=== PATIENT | female | born 1980 | race Caucasian/White ===

== ENCOUNTER 2016-11-22 13:23 | Emergency (ER) | payer OTHER ==
[~2016-11-22] VITALS: Ht 157.5 cm; Wt 108.9 kg
[~2016-11-22 13:23] MED LIST: PHEDM120 PO
[2016-11-22 13:25] VITALS: BP 122/74; PULSE 92; RESP 18; TEMP 97.9; O2SAT 97
[2016-11-22] MEDS ORDERED: DIPHENHYDRAMINE INJ 50 MG/ML VIAL IVP ONE (15:00)
[2016-11-22] MEDS ORDERED: METOCLOPRAMIDE HCL 10 MG/2 ML VIAL IVP ONE (15:00)
[2016-11-22 15:06] LABS: BASOPHILS % (AUTO) 0.4 % (0.0-2.0); EOSINOPHILS # (AUTO) 0.1 K/uL (0.0-0.4); EOSINOPHILS % (AUTO) 1.4 % (0.0-4.0); HEMATOCRIT 40.1 % (36-48); HEMOGLOBIN 13.9 g/dL (12.0-16.0); LYMPHOCYTES # (AUTO) 1.8 K/uL (1.0-5.5); LYMPHOCYTES % (AUTO) 25.7 % (20.5-51.5); MEAN CORPUSCULAR HEMOGLOBIN 27 pg (27-31); MEAN CORPUSCULAR HGB CONC 35 % (32-36); MEAN CORPUSCULAR VOLUME 77 fL (79.0-98.0); MONOCYTES # (AUTO) 0.4 K/uL (0.0-1.0); MONOCYTES % (AUTO) 6.4 % (1.7-9.3); NEUTROPHILS # (AUTO) 4.5 K/uL (1.8-7.7); NEUTROPHILS % (AUTO) 66.1 % (40.0-70.0); PLATELET COUNT (AUTO) 216 K/uL (130-430); RED BLOOD CELL COUNT(AUTO) 5.23 MIL/uL (4.2-6.2); RED CELL DISTRIBUTION WIDTH 14.4 % (9.0-15.0); WHITE BLOOD COUNT (AUTO) 6.8 K/uL (4.8-10.8)
[2016-11-22 15:18] LABS: CALCIUM 8.9 mg/dL (8.4-11.0); CREATININE 0.94 mg/dL (0.55-1.30); POTASSIUM 3.9 mmol/L (3.5-5.1)
[2016-11-22 15:24] LABS: ALBUMIN 3.5 g/dL (3.4-4.8); TOTAL BILIRUBIN 0.4 mg/dL (0.0-1.0); TOTAL PROTEIN, SERUM 7.9 g/dL (6.4-8.3)
[2016-11-22] MEDS ORDERED: MORPHINE 4 MG/ML INJ. SYRINGE IVP ONE (17:15)
[2016-11-22 18:25] VITALS: BP 117/76; PULSE 85; RESP 18; TEMP 97.2; O2SAT 99
== END 2016-11-22 18:25 | disposition home or self-care (01) ==
LOC: SED 13:23
DX: R51 Headache (principal); J45.909 Unspecified asthma, uncomplicated; Z88.5 Allergy status to narcotic agent
CPT/HCPCS: 36415; 80053; 81025; 85025; 96374; 96375; 99284; J1200; J2270; J2765

== ENCOUNTER 2016-11-27 04:43 | Emergency (ER) | payer OTHER ==
[~2016-11-27] VITALS: Ht 157.5 cm; Wt 104.3 kg
[2016-11-27 04:50] VITALS: BP 127/73; PULSE 67; RESP 16; TEMP 98.3; O2SAT 94
--- NOTE | 2016-11-27 05:00 | NUR ---
Patient to ER bed 7 to gown for evaluation. Side rails up.
--- NOTE | 2016-11-27 05:01 | NUR ---
Pt in bed 7 with c/o migrane H/A. Dr Dietz aware.
[2016-11-27] MEDS ORDERED: KETOROLAC TROMETHAMINE 30 MG VIAL IVP ONE (05:15)
[2016-11-27] MEDS ORDERED: NACL 0.9% 1,000 ML IV ONE (05:15)
[2016-11-27] MEDS ORDERED: PROCHLORPERAZINE EDISYLATE 10 MG/2 ML VIAL IVP ONE (05:15)
[2016-11-27] MEDS ORDERED: DEXAMETHASONE SOD PHOSPHATE 10 MG/ML VIAL IVP ONE (05:15)
--- NOTE | 2016-11-27 05:20 | NUR ---
ER at bedside examining patient.
--- NOTE | 2016-11-27 05:25 | NUR ---
# 22 gauge angiocath placed to left forearm. Use of asceptic technique. Opsite placed over site. Blood return noted. Blood for lab drawn from site. Flushed with 10 cc of normal saline. No evidence of infiltration noted. Patient tolerated well.
--- NOTE | 2016-11-27 05:40 | NUR ---
Medicated as per orders tolerated well.
[2016-11-27] MEDS ORDERED: HYDROmorphone 1 MG INJ. 1 MG/ML AMPUL IVP ONE (06:15)
[2016-11-27] MEDS ORDERED: ONDANSETRON HCL 4 MG/2 ML VIAL IVP ONE (06:15)
--- NOTE | 2016-11-27 07:25 | NUR ---
Patient sleeping in bed, stable condition. No distress noted.
[2016-11-27 08:00] VITALS: BP 112/76; PULSE 76; RESP 16; TEMP 98.3; O2SAT 98
--- NOTE | 2016-11-27 08:00 | NUR ---
Patient given written and verbal discharge instructions and verbalizes understanding. ER MD discussed with patient the results and treatment provided.Patient in stable condition. ID arm band removed. IV catheter removed intact and dressing applied, no active bleeding. nO Rx given. Patient educated on pain management and to follow up with PMD. Pain Scale 0/10. Opportunity for questions provided and answered.
== END 2016-11-27 08:00 | disposition home or self-care (01) ==
LOC: SED 04:43
DX: G43.819 Other migraine, intractable, without status migrainosus (principal); H53.149 Visual discomfort, unspecified; J45.909 Unspecified asthma, uncomplicated; Z88.5 Allergy status to narcotic agent
CPT/HCPCS: 81025; 96361; 96374; 96375; 99284; J0780; J1100; J1885; J2405; J7030; J1170

== ENCOUNTER 2016-11-28 12:05 | Outpatient (CLI) | payer OTHER | END 2016-11-28 18:13 | disposition home or self-care (01) | LOC: SMI 12:05 | PROVIDERS: ATTEND Internal Medicine | DX: J34.89 Other specified disorders of nose and nasal sinuses (principal); R51 Headache | CPT/HCPCS: 70551 ==

== ENCOUNTER 2017-02-26 15:04 | Outpatient (CLI) | payer OTHER ==
[2017-02-27 08:08] LABS: FOLLICLE STIMULATION HORMONE 4.9 mIU/mL (.); HEMOGLOBIN A1C 5.5 % (4.8-5.6); LUETENIZING HORMONE 2.1 mIU/mL (.); PROLACTIN 12.1 ng/mL (4.8-23.3)
== END 2017-02-26 18:54 | disposition home or self-care (01) ==
LOC: SLB 15:04
PROVIDERS: ATTEND Specialist
DX: N92.6 Irregular menstruation, unspecified (principal)
CPT/HCPCS: 36415; 82670; 83001; 83002; 83036; 83525; 84146; 84443-TC

== ENCOUNTER 2017-03-13 14:23 | Emergency (ER) | payer OTHER ==
[~2017-03-13] VITALS: Ht 157.5 cm; Wt 113.4 kg
[2017-03-13 14:25] VITALS: BP_SYST 133
[2017-03-13] MEDS ORDERED: ONDANSETRON HCL 4 MG/2 ML VIAL IVP ONE (14:45)
[2017-03-13] MEDS ORDERED: MORPHINE 2 MG/ML INJ. SYRINGE IVP ONE (14:45)
[2017-03-13 14:59] LABS: BILIRUBIN,URINE NEGATIVE (NEGATIVE); BLOOD, URINE NEGATIVE (NEGATIVE); CLARITY/URINE SL HAZY (CLEAR); COLOR,URINE YELLOW (YELLOW); GLUCOSE,URINE NEGATIVE (NEGATIVE); KETONES,URINE TRACE (NEGATIVE); LEUKOCYTE ESTERASE ,URINE NEGATIVE (NEGATIVE); NITRITE, URINE NEGATIVE (NEGATIVE); PROTEIN URINE NEGATIVE (NEGATIVE); UROBILINOGEN,URINE 0.2 (0.2-1.0)
[2017-03-13 15:03] LABS: BASOPHILS # (AUTO) 0.1 K/uL (0.0-0.2); BASOPHILS % (AUTO) 0.8 % (0.0-2.0); EOSINOPHILS % (AUTO) 0.3 % (0.0-4.0); HEMATOCRIT 46.6 % (36-48); LYMPHOCYTES # (AUTO) 0.7 K/uL (1.0-5.5); MEAN CORPUSCULAR HEMOGLOBIN 26 pg (27-31); MEAN CORPUSCULAR HGB CONC 32 % (32-36); MEAN CORPUSCULAR VOLUME 81 fL (79.0-98.0); MONOCYTES # (AUTO) 0.3 K/uL (0.0-1.0); MONOCYTES % (AUTO) 2.1 % (1.7-9.3); NEUTROPHILS # (AUTO) 13.8 K/uL (1.8-7.7); NEUTROPHILS % (AUTO) 91.8 % (40.0-70.0); PLATELET COUNT (AUTO) 248 K/uL (130-430); RED BLOOD CELL COUNT(AUTO) 5.77 MIL/uL (4.2-6.2); RED CELL DISTRIBUTION WIDTH 14.3 % (9.0-15.0); WHITE BLOOD COUNT (AUTO) 14.9 K/uL (4.8-10.8)
[2017-03-13 15:06] LABS: CALCIUM 8.9 mg/dL (8.4-11.0); CREATININE 1.15 mg/dL (0.55-1.30); POTASSIUM 4.3 mmol/L (3.5-5.1)
[2017-03-13 15:11] LABS: ALBUMIN 3.8 g/dL (3.4-4.8); TOTAL BILIRUBIN 0.8 mg/dL (0.0-1.0); TOTAL PROTEIN, SERUM 8.1 g/dL (6.4-8.3)
[2017-03-13] MEDS ORDERED: DIPHENHYDRAMINE INJ 50 MG/ML VIAL IVP ONE (15:15)
[2017-03-13 16:27] LABS: BACTERIA,URINE FEW /HPF (None Seen); MUCUS,URINE 1+ /LPF (None Seen); RBC,URINE NONE SEEN /HPF (0-3)
[2017-03-13] MEDS ORDERED: KETOROLAC TROMETHAMINE 30 MG VIAL IVP ONE (17:00)
[2017-03-13 17:33] VITALS: BP_SYST 124
== END 2017-03-13 17:33 | disposition home or self-care (01) ==
LOC: SED 14:23
DX: R10.13 Epigastric pain (principal); R19.7 Diarrhea, unspecified; R03.0 Elevated blood-pressure reading, without diagnosis of hypertension; J45.909 Unspecified asthma, uncomplicated; E66.9 Obesity, unspecified; Z68.42 Body mass index [BMI] 45.0-49.9, adult; Z88.5 Allergy status to narcotic agent
CPT/HCPCS: 36415; 74176; 76700; 80053; 81000; 81025; 82150; 83690; 85025; 96374; 96375; 99285; J1200; J1885; J2270; J2405

== ENCOUNTER 2017-11-11 08:19 | Emergency (ER) | payer OTHER ==
[~2017-11-11] VITALS: Ht 157.5 cm; Wt 104.3 kg
[2017-11-11 08:20] VITALS: BP_SYST 128
[2017-11-11] MEDS ORDERED: ALBUTEROL SULFATE 0.083% 2.5 MG/3 ML VIAL.NEB INH ONE (09:45)
[2017-11-11] MEDS ORDERED: IPRATROPIUM BROM 0.5 MG/2.5 ML VIAL.NEB (ATROVENT) INH ONE (09:45)
[2017-11-11 10:19] LABS: BASOPHILS % (AUTO) 0.2 % (0.0-2.0); EOSINOPHILS # (AUTO) 0.1 K/uL (0.0-0.4); EOSINOPHILS % (AUTO) 1.2 % (0.0-4.0); HEMATOCRIT 41.5 % (36-48); HEMOGLOBIN 13.8 g/dL (12.0-16.0); LYMPHOCYTES % (AUTO) 10.6 % (20.5-51.5); MEAN CORPUSCULAR HEMOGLOBIN 27 pg (27-31); MEAN CORPUSCULAR HGB CONC 33 % (32-36); MEAN CORPUSCULAR VOLUME 80 fL (79.0-98.0); MONOCYTES # (AUTO) 0.4 K/uL (0.0-1.0); MONOCYTES % (AUTO) 4.5 % (1.7-9.3); NEUTROPHILS # (AUTO) 7.6 K/uL (1.8-7.7); NEUTROPHILS % (AUTO) 83.5 % (40.0-70.0); PLATELET COUNT (AUTO) 236 K/uL (130-430); RED BLOOD CELL COUNT(AUTO) 5.21 MIL/uL (4.2-6.2); RED CELL DISTRIBUTION WIDTH 14.8 % (9.0-15.0); WHITE BLOOD COUNT (AUTO) 9.1 K/uL (4.8-10.8)
[2017-11-11 10:29] LABS: ANION GAP 10 (5-15); CALCIUM 8.8 mg/dL (8.4-11.0); CHLORIDE 104 mmol/L (98-107); CREATININE 0.84 mg/dL (0.55-1.30); GLUCOSE 106 mg/dL (70-99); SODIUM SERUM 138 mmol/L (136-145); UREA NITROGEN, BLOOD 12 mg/dL (8-21)
[2017-11-11 10:33] LABS: INR 1.1 (0.8-1.2); PROTHROMBIN TIME 10.9 SECS (9.5-12.5)
[2017-11-11 10:36] LABS: GFR AFRICAN AMERICAN 99 mL/min (>90)
[2017-11-11 10:38] LABS: ALANINE AMINOTRANSFERASE 24 U/L (12-78); ALBUMIN 3.3 g/dL (3.4-4.8); ASPARTATE AMINOTRANSFERASE 23 U/L (10-37); TOTAL BILIRUBIN 0.3 mg/dL (0.0-1.0)
[2017-11-11] MEDS ORDERED: KETOROLAC TROMETHAMINE 60 MG/2 ML VIAL IM ONE (10:45)
[2017-11-11 12:06] VITALS: BP_SYST 111
== END 2017-11-11 12:05 | disposition home or self-care (01) ==
LOC: SED 08:19
DX: J45.909 Unspecified asthma, uncomplicated (principal); Z88.6 Allergy status to analgesic agent; Z79.899 Other long term (current) drug therapy
CPT/HCPCS: 36415; 71045; 80053; 81025; 83880; 84145; 84484; 84703; 85025; 85610; 85730; 86710; 94640; 96372; 99285; J1885

== ENCOUNTER 2017-11-13 11:40 | Inpatient (IN) | payer OTHER ==
[~2017-11-13] VITALS: Ht 157.5 cm; Wt 104.3 kg
--- NOTE | 2017-11-13 12:20 | NUR ---
ADMISSION: The patient, JESÚS BARKER, 37 y/o, F admitted by MAMADOU ESPINOSA MD, was given written information regarding hospital policies, unit procedures and contact persons.
[2017-11-13 12:23] VITALS: BP_SYST 143
[2017-11-13 13:26] LABS: CALCIUM 9.4 mg/dL (8.4-11.0); CREATININE 0.88 mg/dL (0.55-1.30); POTASSIUM 3.9 mmol/L (3.5-5.1)
[2017-11-13 13:28] LABS: BASOPHILS % (AUTO) 0.2 % (0.0-2.0); HEMATOCRIT 43.4 % (36-48); HEMOGLOBIN 14.2 g/dL (12.0-16.0); LYMPHOCYTES # (AUTO) 1.6 K/uL (1.0-5.5); LYMPHOCYTES % (AUTO) 22.1 % (20.5-51.5); MEAN CORPUSCULAR HEMOGLOBIN 26 pg (27-31); MEAN CORPUSCULAR HGB CONC 33 % (32-36); MEAN CORPUSCULAR VOLUME 81 fL (79.0-98.0); MONOCYTES # (AUTO) 0.6 K/uL (0.0-1.0); MONOCYTES % (AUTO) 8.2 % (1.7-9.3); NEUTROPHILS % (AUTO) 69.5 % (40.0-70.0); PLATELET COUNT (AUTO) 261 K/uL (130-430); RED BLOOD CELL COUNT(AUTO) 5.39 MIL/uL (4.2-6.2); RED CELL DISTRIBUTION WIDTH 14.9 % (9.0-15.0); WHITE BLOOD COUNT (AUTO) 7.2 K/uL (4.8-10.8)
[2017-11-13] MEDS ORDERED: IBUP-1480 PO (13:31)
[2017-11-13] MEDS ORDERED: IPRA0.2S6 INH (13:33)
[2017-11-13] MEDS: IPRATROPIUM/ALBUTEROL SULFATE 3 ML AMPUL.NEB INH PRN (13:40)
[2017-11-13 13:41] VITALS: BP_SYST 143
[2017-11-13] MEDS ORDERED: DEXAMETHASONE SOD PHOSPHATE 4 MG/ML VIAL IVP ONE (13:45)
--- NOTE | 2017-11-13 14:00 | NUR ---
PATIENT RESTING: Patient resting quietly. No acute distress noted. Vital signs within normal range.
[2017-11-13] MEDS ORDERED: DOXYCYCLINE HYCLATE 100 MG CAPSULE PO ONE (14:30)
[2017-11-13] MEDS ORDERED: cefTRIAXone 1 GM in D5W 50 ML IV ONE (14:30)
[2017-11-13] MEDS ORDERED: OSELTAMIVIR PHOSPHATE 75 MG CAPSULE PO ONE (14:30)
[2017-11-13] MEDS ORDERED: PANTOPRAZOLE SODIUM 40 MG TAB PO ONE (14:45)
[2017-11-13] MEDS: IPRATROPIUM/ALBUTEROL SULFATE 3 ML AMPUL.NEB INH SCH ×2 (15:48→20:49)
[2017-11-13] MEDS: IBUPROFEN 800 MG TABLET PO PRN (15:49)
--- NOTE | 2017-11-13 16:00 | NUR ---
PATIENT RESTING: Patient resting quietly. No acute distress noted. patient denies any chest pain/ shortness of breath.
--- NOTE | 2017-11-13 16:00 | NUR ---
PATIENT RESTING: Patient resting quietly. No acute distress noted. call light within reach. denies chest pain/ shortness of breath.
[2017-11-13 16:45] VITALS: BP_SYST 139
[2017-11-13] MEDS: DEXAMETHASONE 1 MG TABLET (DECADRON) PO SCH ×2 (18:27→22:16)
[2017-11-13] MEDS: PROMETHAZINE-DM 6.25 MG-15 MG/5 ML UDC PO SCH ×2 (18:28→22:16)
--- NOTE | 2017-11-13 18:51 | NUR ---
closing note patient in bed awake alert. in no distress. all needs met through shift. will endorse care to condenser tester. safety precautions observed.
--- NOTE | 2017-11-13 19:30 | NUR ---
INITIAL NOTE Received report from day shift nurse at the bedside. Pt resting in bed awake, alert, and oriented. Breathing unlabored and even. No signs of distress, no needs at this time. Fall and safety precautions in place. IV access right AC #20, saline locked. VSS. Bed in lowest position, brake on, call light within reach. Will continue to monitor.
[2017-11-13 20:00] VITALS: BP_SYST 127
--- NOTE | 2017-11-13 20:00 | NUR ---
ROUNDS Pt resting in bed awake, alert, and oriented. Breathing unlabored and even. No signs of distress, no needs at this time. Fall and safety precautions in place. Bed in lowest position, brake on, call light within reach. Will continue to monitor.
[2017-11-13] MEDS: PANTOPRAZOLE SODIUM 40 MG TAB PO SCH (20:56)
[2017-11-13] MEDS: OSELTAMIVIR PHOSPHATE 75 MG CAPSULE PO SCH (20:57)
[2017-11-13] MEDS: DOXYCYCLINE HYCLATE 100 MG CAPSULE PO SCH (20:57)
--- NOTE | 2017-11-13 22:00 | NUR ---
ROUNDS Pt resting in bed awake, alert and oriented. Breathing unlabored and even. No signs of distress, no needs at this time. Fall and safety precautions in place. Bed in lowest position, brake on, call light within reach. Will continue to monitor.
--- NOTE | 2017-11-14 | NUR ---
ROUNDS Pt resting in bed with eyes closed. Breathing unlabored and even. No signs of distress, no needs at this time. Fall and safety precautions in place. Bed in lowest position, brake on, call light within reach. Will continue to monitor.
[2017-11-14] MEDS: IPRATROPIUM/ALBUTEROL SULFATE 3 ML AMPUL.NEB INH SCH ×6 (00:08→20:43)
[2017-11-14 05:09] VITALS: BP_SYST 133
[2017-11-14] MEDS: IBUPROFEN 800 MG TABLET PO PRN ×2 (05:31→17:01)
--- NOTE | 2017-11-14 05:32 | NUR ---
PRN MOTRIN ADMINISTERED Pt c/o pain. Administered PRN motrin as ordered.
--- NOTE | 2017-11-14 06:17 | NUR ---
ROUNDS Pt resting in bed awake. Breathing unlabored and even. No signs of distress, no needs at this time. Fall and safety precautions in place. Bed in lowest position, brake on, call light within reach. Will continue to monitor.
--- NOTE | 2017-11-14 06:33 | NUR ---
CLOSING NOTE Pt resting in bed awake. Breathing unlabored and even. No signs of distress, no needs at this time. All needs met throughout shift. Fall and safety precautions in place throughout shift. Bed in lowest position, brake on, call light within reach. Will endorse cares to day shift nurse.
[2017-11-14 07:17] LABS: BASOPHILS # (AUTO) 0.1 K/uL (0.0-0.2); BASOPHILS % (AUTO) 1.2 % (0.0-2.0); HEMOGLOBIN 14.3 g/dL (12.0-16.0); LYMPHOCYTES # (AUTO) 0.9 K/uL (1.0-5.5); LYMPHOCYTES % (AUTO) 13.5 % (20.5-51.5); MEAN CORPUSCULAR HEMOGLOBIN 26 pg (27-31); MEAN CORPUSCULAR HGB CONC 32 % (32-36); MEAN CORPUSCULAR VOLUME 81 fL (79.0-98.0); MONOCYTES # (AUTO) 0.2 K/uL (0.0-1.0); MONOCYTES % (AUTO) 3.5 % (1.7-9.3); NEUTROPHILS # (AUTO) 5.7 K/uL (1.8-7.7); NEUTROPHILS % (AUTO) 81.8 % (40.0-70.0); PLATELET COUNT (AUTO) 253 K/uL (130-430); RED BLOOD CELL COUNT(AUTO) 5.58 MIL/uL (4.2-6.2); RED CELL DISTRIBUTION WIDTH 15.4 % (9.0-15.0); WHITE BLOOD COUNT (AUTO) 6.9 K/uL (4.8-10.8)
--- NOTE | 2017-11-14 07:58 | NUR ---
Opening Note Patient is resting in bed, alert and oriented x4, chief complaint of sore throat, she has occasional coughing, she is on room air at the moment, no signs of respiratory distress or discomfort, breathing equal and unlabored, she does not have any PRN medications for sore throat or pain at this time, will speak with doctor for orders, head of bed is elevated, she has a right arm 20 gauge, saline locked, no signs of redness or swelling at the site, vital signs and head to toe assessment were performed at this time, safety precautions are being implemented, bed in lowest position with 2 side rails up, brakes locked, patient was instructed how to use call light for assistance, she verbalized understanding, bedside table within reach, will be back to administer medications
[2017-11-14 08:03] LABS: ALBUMIN 3.7 g/dL (3.4-4.8); CREATININE 0.81 mg/dL (0.55-1.30); FREE T4 (FREE THYROXINE) 1.1 ng/dL (0.6-1.6); POTASSIUM 4.1 mmol/L (3.5-5.1); TOTAL BILIRUBIN 0.2 mg/dL (0.0-1.0)
[2017-11-14 08:08] VITALS: BP_SYST 125
[2017-11-14] MEDS: PANTOPRAZOLE SODIUM 40 MG TAB PO SCH ×2 (08:25→20:54)
[2017-11-14] MEDS: OSELTAMIVIR PHOSPHATE 75 MG CAPSULE PO SCH ×2 (08:25→20:53)
[2017-11-14] MEDS: cefTRIAXone 1 GM in D5W 50 ML IV SCH (08:25)
[2017-11-14] MEDS: DOXYCYCLINE HYCLATE 100 MG CAPSULE PO SCH ×2 (08:25→20:53)
[2017-11-14 08:27] LABS: CALCIUM 9.9 mg/dL (8.4-11.0)
[2017-11-14] MEDS: PROMETHAZINE-DM 6.25 MG-15 MG/5 ML UDC PO SCH ×4 (08:33→20:52)
[2017-11-14] MEDS: DEXAMETHASONE 1 MG TABLET (DECADRON) PO SCH ×4 (08:33→20:53)
--- NOTE | 2017-11-14 08:40 | NUR ---
Medication Administration Patient was administered morning medication by mouth and IV Vibramycin, IV site patent and in tact with no signs of redness or swelling, IV fluids infusing well, she has no complaints of pain at this time except for sore throat, breathing equal and unlabored, she is on room air, no signs of respiratory distress or discomfort, safety precautions in place, bed in lowest position with 2 side rails up, call light left within reach, will continue to monitor
--- NOTE | 2017-11-14 10:02 | NUR ---
RN Rounds Patient is resting in bed, no complaints of pain or discomfort at this time, no signs of respiratory distress or discomfort, patient is on room air, head of bed is elevated, safety precautions remain in place, call light left within reach, will continue to monitor patient
[2017-11-14] MEDS: BENZOCAINE/MENTHOL 1 EACH LOZENGE MM PRN ×3 (12:46→21:24)
[2017-11-14 12:47] VITALS: BP_SYST 128
--- NOTE | 2017-11-14 12:48 | NUR ---
RN Rounds/Medication Administration Patient was administed afternoon medications, she was administered PRN cepacol for sore throat, she is not complaining of any pain or discomfort at this time, IV site is saline locked, head of bed is elevated, she is on room air, patient verbalized understanding to use call light if she needs assistance, call light left within reach, bed in lowest position, will continue to monitor patient
--- NOTE | 2017-11-14 13:59 | NUR ---
PULMONOLOGY CONSULT CALLED TO DR ARNOLD, RE: EXAC ASTHMA/SORE THROAT. SPOKE TO JESÚS.
--- NOTE | 2017-11-14 14:03 | NUR ---
RN Rounds Patient is resting in bed at this time, no signs of respiratory distress, breathing symmetrical and unlabored, she is on room air, safety precautions are in place, bed in lowest position with 2 side rails up, call light left within reach, patient understands how to use call light if she needs assistance, will continue to monitor patient
--- NOTE | 2017-11-14 14:27 | NUR ---
Dietitian Recommendations * Recommend continuing regular diet per LP, RD Please refer to Nutrition Assessment for details.
--- NOTE | 2017-11-14 15:09 | NUR ---
MD Rounds Dr. Garcia doing rounds on patient, assessed patient on bedside, will follow up with new orders
[2017-11-14] MEDS ORDERED: DEXTROSE 50% JECT 50 ML DISP.SYRIN IVP PRN (15:15)
[2017-11-14 16:00] VITALS: BP_SYST 134
--- NOTE | 2017-11-14 17:05 | NUR ---
Medication Administration/blood glucose check Patient was administered medication by mouth and requested PRN ibuprofen for headache, blood glucose was assessed at this time and was 134, no insulin coverage was necessary. Patient is resting in bed, denies any other pain at this time, respirations are equal and unlabored, she is on room air, she does not have any other needs at this time, patient was instructed to use call light when she needs assistance, she verbalized understanding, call light left within reach, bed in lowest position and in locked position, will continue to monitor patient
--- NOTE | 2017-11-14 19:22 | NUR ---
Closing Note Patient is resting in bed, she is awake and alert, head of bed is elevated, no signs of respiratory distress or discomfort at this time, she is on room air, IV site is saline locked, safety precautions remain in place, bed in lowest position with 2 side rails up and locked, call light left within reach, endorsed to manager shift nurse
[2017-11-14 20:00] VITALS: BP_SYST 123
--- NOTE | 2017-11-14 20:00 | NUR ---
PM OPENING NOTES RECEIVED PATIENT ON BED, AWAKE, ALERT AND VERBALLY RESPONSIVE WITH NO SIGN OF RESPIRATORY DISTRESS AND NO COMPLAIN OF PAIN OR DISCOMFORT AT THIS TIME. IV SALINE LOCK ON THE RIGHT ANTECUBITAL IS INTACT WITH NO S/SX. OF INFILTRATION AT THIS TIME. WILL CONTINUE TO MONITOR. CALL LIGHT WITHIN REACH.
[2017-11-14] MEDS: BUDESONIDE 0.5 MG/2 ML AMPUL.NEB INH SCH (20:45)
[2017-11-14] MEDS: INSULIN REGULAR, HUMAN 100 UNITS/ML, 10 ML VIAL (novoLIN R) SUBCUT PRN (20:55)
[2017-11-15] VITALS: BP_SYST 128
--- NOTE | 2017-11-15 00:11 | NUR ---
ROUNDS NOTES PATIENT ON BED LAYING ON HER LEFT SIDE SLEEPING WITH NO SIGN OF RESPIRATORY DISTRESS AT THIS TIME. WILL CONTINUE TO MONITOR. CALL LIGHT WITHIN REACH.
[2017-11-15] MEDS: IPRATROPIUM/ALBUTEROL SULFATE 3 ML AMPUL.NEB INH SCH ×6 (02:22→20:53)
--- NOTE | 2017-11-15 04:14 | NUR ---
ROUNDS NOTES PATIENT ON BED LAYING ON HER RIGHT SIDE SLEEPING WITH BREATHING TX. AND NO SIGN OF RESPIRATORY DISTRESS AT THIS TIME. WILL CONTINUE TO MONITOR. CALL LIGHT WITHIN REACH.
[2017-11-15] MEDS: BENZOCAINE/MENTHOL 1 EACH LOZENGE MM PRN ×3 (06:34→21:09)
--- NOTE | 2017-11-15 06:54 | NUR ---
CLOSING NOTES PATIENT ON BED, AWAKE, ALERT AND VERBALLY RESPONSIVE WITH NO SIGN OF RESPIRATORY DISTRESS AND NO COMPLAIN OF PAIN AT THIS TIME. ALL NEEDS ATTENDED AND MET. CALL LIGHT WITHIN REACH.
[2017-11-15 07:03] LABS: CALCIUM 9.2 mg/dL (8.4-11.0); CREATININE 0.8 mg/dL (0.55-1.30); POTASSIUM 4.2 mmol/L (3.5-5.1)
[2017-11-15] MEDS: BUDESONIDE 0.5 MG/2 ML AMPUL.NEB INH SCH ×2 (07:38→21:36)
--- NOTE | 2017-11-15 07:38 | NUR ---
Opening Note Patient is resting in bed, she is alert and oriented x4, she is not complaining of any pain at this time, head of bed is elevated, breathing equal and unlabored, she is currently receiving breathing treatment, IV site patent and in tact, saline locked, head to toe assessment performed at this time, patient is ambulatory, safety precautions are in place, bed in lowest position with 2 side rails up and in locked position, bedside table within reach, patient was instructed regarding use of call light, she verbalized understanding, call light left within reach, will be back to administer medication
[2017-11-15 08:08] VITALS: BP_SYST 136
[2017-11-15] MEDS: PANTOPRAZOLE SODIUM 40 MG TAB PO SCH ×2 (08:21→21:08)
[2017-11-15] MEDS: OSELTAMIVIR PHOSPHATE 75 MG CAPSULE PO SCH ×2 (08:21→21:08)
[2017-11-15] MEDS: DEXAMETHASONE 1 MG TABLET (DECADRON) PO SCH ×4 (08:21→21:07)
[2017-11-15] MEDS: DOXYCYCLINE HYCLATE 100 MG CAPSULE PO SCH ×2 (08:21→21:09)
[2017-11-15] MEDS: cefTRIAXone 1 GM in D5W 50 ML IV SCH (08:22)
[2017-11-15] MEDS: PROMETHAZINE-DM 6.25 MG-15 MG/5 ML UDC PO SCH ×4 (08:22→21:08)
[2017-11-15] MEDS: IBUPROFEN 800 MG TABLET PO PRN (08:33)
--- NOTE | 2017-11-15 08:40 | NUR ---
Medication Administration Patient was administered morning medications, she was also given Rocephin via IV piggyback, IV site is patent and in tact, flushed well with normal saline, she was administered PRN Motrin for headache, no signs of respiratory distress at this time, breathing equal and unlabored on room air, she has no other needs at this time, will continue to monitor patient
--- NOTE | 2017-11-15 10:24 | NUR ---
RN Rounds Patient was administered PRN Cepacol for sore throat, PRN breathing treatment was ordered because she is feeling short of breath at the moment, will continue to monitor her breathing, safety precautions remain in place, bed in lowest position with 2 side rails up, call light and bedside table left within reach, will continue to check on patient
[2017-11-15] MEDS: IPRATROPIUM/ALBUTEROL SULFATE 3 ML AMPUL.NEB INH PRN (10:36)
[2017-11-15] MEDS: INSULIN REGULAR, HUMAN 100 UNITS/ML, 10 ML VIAL (novoLIN R) SUBCUT PRN ×3 (11:22→21:06)
--- NOTE | 2017-11-15 11:48 | NUR ---
Blood glucose was assessed, was 182, patient received 2 units of regular insulin subQ on abdomen, she has no complaints of pain or discomfort at this time, breathing unlabored and equal, no complaints of difficulty breathing, educated patient to call if she needs assistance, she verbalized understanding, safety precautions remain in place, bed in lowest position with 2 side rails up, call light within reach, will continue to monitor patient.
[2017-11-15 12:32] VITALS: BP_SYST 137
--- NOTE | 2017-11-15 13:39 | NUR ---
RN Rounds patient is resting in bed with eyes closed, head of bed is elevated, breathing equal and unlabored ,no signs of respiratory distress at this time, she is on room air, safety precautions remain in place, bed in lowest position with 2 side rails up, call light sitting within reach of patient, bedside table close by, will continue to monitor patient
--- NOTE | 2017-11-15 14:40 | NUR ---
Dr. Garcia/RN rounds Patient resting in bed, non-productive coughing spell at this time, Dr. Garcia assessed the patient at bedside at this time, discussed plan of care with patient and answered the patient's questions. Patient ambulated to the restroom, steady gait, and then returned to bed, no other needs at this time, bed in lowest position, two side rails up, call light within reach, fall precautions in place, continuing to monitor.
--- NOTE | 2017-11-15 16:15 | NUR ---
RN Rounds patient is resting at bedside, head of bed is elevated, she is on room air, no signs of respiratory distress or discomfort at this time, IV site saline locked, bedside table close to bed, call light left within reach, bed positioned in lowest position with 2 side rails up, will continue to monitor patient
[2017-11-15 16:40] VITALS: BP_SYST 123
--- NOTE | 2017-11-15 18:51 | NUR ---
Closing Note Patient is sitting on recliner chair next to bedside, she is on room air, no signs of respiratory distress or discomfort, breathing equal and symmetrical, no complaints of pain at this time, her IV site is saline locked, safety precautions remain in place, call light and phone left within reach, patient verbalized understanding regarding use of call light for assistance, bedside table within reach, will endorse to shiftman nurse
[2017-11-15 19:53] VITALS: BP_SYST 129
--- NOTE | 2017-11-15 19:57 | NUR ---
OPENING NOTES RECEIVED PATIENT AWAKE SITTING IN CHAIR INSIDE ROOM. DENIES ANY PAIN AT THIS TIME. BREATHING REGULAR UNLABORED ON ROOM AIR. PATIENT NOTED WITH DRY COUGH AND STILL C/O HER THROAT STILL HURTS. PATIENT ALSO STATED SHE FEELS DIZZY BEFORE DINNER AND WOULD LIKE TO SIT IN THE CHAIR FOR THE MEANTIME. CALL LIGHT IS WITHIN PATIENT EASY REACH. SALINE LOCK TO RIGHT AC INTACT. VITAL SIGNS STABLE. PLAN OF CARE REVIEWED.
--- NOTE | 2017-11-15 21:15 | NUR ---
MED PASS DUE MEDICATIONS GIVEN AND TOLERATED. BLOOD SUGAR 203. COVERED WITH 4 UNITS REGULAR INSULIN ORDERED.
--- NOTE | 2017-11-15 22:50 | NUR ---
ROUNDS PATIENT RESTING IN BED EYES CLOSED. NO RESPIRATORY DISTRESS NOTED. CALL LIGHT WITHIN EASY REACH. SIDERAILS UP X2.
[2017-11-16 00:26] VITALS: BP_SYST 134
[2017-11-16] MEDS: IPRATROPIUM/ALBUTEROL SULFATE 3 ML AMPUL.NEB INH SCH ×6 (00:36→19:57)
--- NOTE | 2017-11-16 01:33 | NUR ---
ROUNDS PATIENT RESTING QUIETLY IN BED. NO RESPIRATORY DISTRESS NOTED ON ROOM AIR. BED IN LOWEST LOCKED POSITION. SIDERAIL UP X2. CALL LIGHT WITHIN EASY REACH
[2017-11-16] MEDS: BENZOCAINE/MENTHOL 1 EACH LOZENGE MM PRN ×2 (03:34→18:23)
--- NOTE | 2017-11-16 03:35 | NUR ---
THROAT PAIN PT AWAKE C/O THROAT PAIN. CEPHACOL LOZENGES GIVEN PER PATIENT REQUEST ORDERED.
--- NOTE | 2017-11-16 06:40 | NUR ---
MD ROUNDS DR. ARNOLD MAKING ROUNDS AT PATIENT BEDSIDE. MADE AWARE PT COUGHING A LOT. PER MD SHE WILL PUT IN NEW ORDERS.
[2017-11-16] MEDS: BUDESONIDE 0.5 MG/2 ML AMPUL.NEB INH SCH ×2 (06:48→20:07)
--- NOTE | 2017-11-16 06:58 | NUR ---
CLOSING NOTES PATIENT AWAKE IN BED. NO RESPIRATORY DISTRESS NOTED BUT REMAINS COUGHING. DENIES PAIN AT THIS TIME. NEEDS ATTENDED.
--- NOTE | 2017-11-16 07:49 | NUR ---
OPENING NOTE RECEIVED REPORT FROM ENERGY EFFICIENT SITE MANAGER NURSE. PT IS SLEEPING IN BED. PT IS ON RA TOLERATING WELL. PT DOES NOT HAVE SCD'S ON, WILL PUT SCD'S WHEN PT IS AWAKE. SAFETY MEASURES IN PLACE, BED TO LOWEST POSITION, SIDE RAILS UP X3, CALL LIGHT WITHIN REACH. WILL CONTINUE TO MONITOR.
[2017-11-16] MEDS: DEXAMETHASONE 1 MG TABLET (DECADRON) PO SCH ×4 (08:20→20:21)
[2017-11-16] MEDS: cefTRIAXone 1 GM in D5W 50 ML IV SCH (08:20)
[2017-11-16] MEDS: PANTOPRAZOLE SODIUM 40 MG TAB PO SCH ×2 (08:20→20:20)
[2017-11-16] MEDS: DOXYCYCLINE HYCLATE 100 MG CAPSULE PO SCH ×2 (08:20→20:20)
[2017-11-16] MEDS: PROMETHAZINE-DM 6.25 MG-15 MG/5 ML UDC PO SCH ×4 (08:20→20:22)
[2017-11-16] MEDS: OSELTAMIVIR PHOSPHATE 75 MG CAPSULE PO SCH ×2 (08:20→20:20)
[2017-11-16 08:25] VITALS: BP_SYST 126
[2017-11-16] MEDS: BENZONATATE 100 MG CAPSULE (TESSALON) PO SCH ×3 (09:15→20:20)
[2017-11-16 09:17] VITALS: BP_SYST 126
[2017-11-16] MEDS: IBUPROFEN 800 MG TABLET PO PRN ×2 (11:03→17:04)
--- NOTE | 2017-11-16 12:26 | NUR ---
ROUNDS PT IS AWAKE IN BED. PT IS RECEIVING BREATHING TREATMENT. NO DISTRESS NOTED. PT DENIES ANY PAIN, MEDICATION WAS HELPFUL FOR HEADACHE. PT REFUSES SCD'S. SAFETY MEASURES IN PLACE, CALL LIGHT WITHIN REACH. WILL CONTINUE TO MONITOR.
[2017-11-16 12:29] VITALS: BP_SYST 138
--- NOTE | 2017-11-16 14:21 | NUR ---
ROUNDS PT IS SITTING IN BED SLEEPING. PT IS ON RA TOLERATING WELL. NO DISTRESS NOTED. SAFETY MEASURES IN PLACE, CALL LIGHT WITHIN REACH. WILL CONTINUE TO MONITOR.
--- NOTE | 2017-11-16 15:45 | NUR ---
ROUNDS PT A/OX4. NO DISTRESS NOTED. PT REQUESTED TO TAKE SHOWER. NURSE COVERED IV SITE AND PROVIDED ITEMS FOR SHOWER. PT DENIES ANY FEELINGS OF DIZZINES. PT IS AMBULATORY. SAFETY MEASURES IN PLACE. WILL CONTINUE TO MONITOR.
[2017-11-16 16:44] VITALS: BP_SYST 114
--- NOTE | 2017-11-16 17:40 | NUR ---
OPENING NOTE RECEIVED PATIENT AND REPORT FROM DAY SHIFT. PATIENT IS ASLEEP IN BED. NO S/S OF DISTRESS OR DISCOMFORT. BREATHING IS EVEN AND UNLABORED. FALL AND SAFETY PRECAUTIONS IN PLACE. IV TO RIGHT AC INTACT AND PATENT. WILL CONTINUE WITH PLAN OF CARE. Addendum: 11/16/17 at 2002 by Katheryn Julian RN OPENING NOTE RECEIVED PATIENT AND REPORT FROM DAY SHIFT. PATIENT IS ASLEEP IN BED. NO S/S OF DISTRESS OR DISCOMFORT. BREATHING IS EVEN AND UNLABORED. FALL AND SAFETY PRECAUTIONS IN PLACE. IV TO RIGHT AC INTACT AND PATENT. WILL CONTINUE WITH PLAN OF CARE.
--- NOTE | 2017-11-16 18:25 | NUR ---
ROUNDS PT RESTING IN BED. PT RECEIVED PAIN MEDICATION FOR HEADACHE AT 1705. PT STATES IT WAS NOT HELPFUL. NURSE SAID SHE COULD CALL MD TO GET AN ORDER FOR PAIN MEDICATION, PT DOES NOT WANT ANY OTHER PAIN MEDICATION AT THE MOMENT. NO DISTRESS NOTED. SAFETY MEASURES IN PLACE, CALL LIGHT WITHIN REACH.
--- NOTE | 2017-11-16 19:25 | NUR ---
CLOSING NOTE GAVE REPORT TO INFORMATION SYSTEMS ADMINISTRATOR NURSE. PT IS SLEEPING IN BED. PT IS ON RA TOLERATING WELL. NO DISTRESS NOTED. NO SOB NOTED. PT REFUSES TO WEAR SCD'S. PT IS AMBULATORY, MINIMAL WALKING DURING THE DAY. PT IS ON BRP. SAFETY MEASURES IN PLACE, BED TO LOWEST POSITION, SIDE RAILS UP X2, CALL LIGHT WITHIN REACH. ENDORSED TO INFORMATION SYSTEMS ADMINISTRATOR.
--- NOTE | 2017-11-16 20:19 | NUR ---
BLOOD SUGAR BLOOD SUGAR READING : 156. PATIENT REFUSED INSULIN COVERAGE, STATING "IT WILL GO BACK DOWN BY THE MORNING." PATIENT DENIES ANY OTHER NEEDS AT THIS TIME. WILL CONTINUE TO MONITOR.
[2017-11-16 20:20] VITALS: BP_SYST 107
[2017-11-16] MEDS: INSULIN REGULAR, HUMAN 100 UNITS/ML, 10 ML VIAL (novoLIN R) SUBCUT PRN (20:25)
--- NOTE | 2017-11-16 22:18 | NUR ---
ROUNDING NOTE PATIENT IS RESTING IN BED. NO S/S OF DISTRESS OR DISCOMFORT NOTED AT THIS TIME. BREATHING IS EVEN AND UNLABORED. CALL LIGHT WITH PATIENT. FALL AND SAFETY PRECAUTIONS IN PLACE. WILL CONTINUE WITH PLAN OF CARE.
--- NOTE | 2017-11-16 23:03 | NUR ---
ROUNDING NOTE PATIENT IS SLEEPING IN BED. NO S/S OF DISTRESS OR DISCOMFORT NOTED AT THIS TIME. CALL LIGHT WITH PATIENT. FALL AND SAFETY PRECAUTIONS IN PLACE. WILL CONTINUE TO MONITOR.
[2017-11-17 00:11] VITALS: BP_SYST 120
--- NOTE | 2017-11-17 01:09 | NUR ---
ROUNDING NOTE PATIENT APPEARS TO BE SLEEPING IN BED, WITH EYES CLOSED. NO S/S OF DISTRESS OR DISCOMFORT NOTED. FALL AND SAFETY PRECAUTIONS IN PLACE. CALL LIGHT WITH PATIENT. WILL CONTINUE WITH PLAN OF CARE.
--- NOTE | 2017-11-17 03:25 | NUR ---
ROUNDING NOTE PATIENT IS SLEEPING IN BED. NO S/S OF DISTRESS OR DISCOMFORT. FALL AND SAFETY PRECAUTIONS IN PLACE. WILL CONTINUE TO MONITOR.
[2017-11-17] MEDS: IPRATROPIUM/ALBUTEROL SULFATE 3 ML AMPUL.NEB INH SCH ×7 (03:30→23:11)
--- NOTE | 2017-11-17 05:23 | NUR ---
ROUNDING NOTE PATIENT IS SLEEPING IN BED. FALL AND SAFETY PRECAUTIONS IN PLACE. NO S/S OF DISTRESS OR DISCOMFORT NOTED AT THIS TIME. WILL CONTINUE TO MONITOR.
[2017-11-17] MEDS: BENZOCAINE/MENTHOL 1 EACH LOZENGE MM PRN ×2 (06:05→20:45)
--- NOTE | 2017-11-17 06:08 | NUR ---
BLOOD SUGAR BLOOD SUGAR READING OF 124. NO COVERAGE NEEDED PER SLIDING SCALE. PROVIDED PATIENT WITH LOZENGE, PER REQUEST. NO OTHER NEEDS AT THIS TIME. PATIENT DENIES OTHER PAIN OR DISCOMFORT AT THIS TIME. FALL AND SAFETY PRECAUTIONS IN PLACE. CALL LIGHT WITH PATIENT
--- NOTE | 2017-11-17 06:14 | NUR ---
CLOSING NOTE WILL ENDORSE CARE AND BEDSIDE REPORT TO DAY SHIFT NURSE. PATIENT IS STABLE AT THIS TIME. NO SIGNIFICANT CHANGES ON SHIFT. LAST BLOOD SUGAR READIN, NO COVERAGE REQUIRED. MEDICATED PATIENT FOR SORE THROAT PER REQUEST. FALL AND SAFETY PRECAUTIONS MAINTAINED. CALL LIGHT WITH PATIENT.
--- NOTE | 2017-11-17 07:15 | NUR ---
OPENING NOTE RECEIVED REPORT FROM TOBACCO EDUCATOR NURSE. PT IS SLEEPING IN BED. NO DISTRESS NOTED. NO SOB NOTED. PT IS ON RA. SAFETY MEASURES IN PLACE, BED TO LOWEST POSITION, SIDE RAILS UP X2, CALL LIGHT WITHIN REACH. WILL CONTINUE TO MONITOR.
[2017-11-17] MEDS: BUDESONIDE 0.5 MG/2 ML AMPUL.NEB INH SCH ×2 (07:27→19:55)
[2017-11-17] MEDS: PANTOPRAZOLE SODIUM 40 MG TAB PO SCH ×2 (08:18→20:45)
[2017-11-17] MEDS: DOXYCYCLINE HYCLATE 100 MG CAPSULE PO SCH ×2 (08:18→20:45)
[2017-11-17] MEDS: BENZONATATE 100 MG CAPSULE (TESSALON) PO SCH ×3 (08:18→20:45)
[2017-11-17] MEDS: OSELTAMIVIR PHOSPHATE 75 MG CAPSULE PO SCH ×2 (08:18→20:45)
[2017-11-17] MEDS: DEXAMETHASONE 1 MG TABLET (DECADRON) PO SCH ×4 (08:18→20:45)
[2017-11-17] MEDS: cefTRIAXone 1 GM in D5W 50 ML IV SCH (08:18)
[2017-11-17] MEDS: PROMETHAZINE-DM 6.25 MG-15 MG/5 ML UDC PO SCH ×4 (08:19→20:46)
[2017-11-17] MEDS: IBUPROFEN 800 MG TABLET PO PRN (08:19)
[2017-11-17 08:33] VITALS: BP_SYST 145
--- NOTE | 2017-11-17 09:24 | NUR ---
ROUNDS PT IS IN BED SLEEPING. PT RECEIVED MEDICATION FOR HEADACHE AT 0819, WAS EFFECTIVE. NO SOB NOTED, NO DISTRESS NOTED. PT IS ON RA. SAFETY MEASURES IN PLACE, WILL CONTINUE TO MONITOR.
--- NOTE | 2017-11-17 11:01 | NUR ---
ROUNDS PT IS IN BED SLEEPING. NO SOB NOTED, NO DISTRESS NOTED. PT DOES NOT HAVE SCD'S ON. SAFETY MEASURES IN PLACE, BED TO LOWEST POSITION, SIDE RAILS UPX2, CALL LIGHT WITHIN REACH. WILL CONTINUE TO MONITOR.
--- NOTE | 2017-11-17 12:51 | NUR ---
ROUNDS PT IN BED RESTING. PT ON RA TOLERATING WELL. NO DISTRESS NOTED. SAFETY MEASURES IN PLACE, BED TO LOWEST POSITION, SIDE RAILS UPX2, CALL LIGHT WITHIN REACH.
--- NOTE | 2017-11-17 14:37 | NUR ---
ROUNDS PT IN BED RESTING WATCHING TV. PT STATES HER COUGH IS BETTER. NO SOB, NO DISTRESS NOTED. PT ON RA TOLERATING WELL. SAFETY MEASURES IN PLACE, CALL LIGHT WITHIN REACH.
--- NOTE | 2017-11-17 15:17 | NUR ---
ROUNDS PT IN SITTING IN BED WATCHING TV. PT ON RA TOLERATING WELL. PT HAS DRY COUGH. NO DISTRESS NOTED. PT DENIES ANY PAIN. PT REFUSES SCD'S. SAFETY MEASURES IN PLACE, CALL LIGHT WITHIN REACH.
[2017-11-17 15:52] VITALS: BP_SYST 116
--- NOTE | 2017-11-17 16:15 | NUR ---
MD ROUNDS DR ESPINOSA DID ROUNDS WITH PT. PER , HE WILL PUT THE ORDERS IN.
[2017-11-17] MEDS ORDERED: ACETAMINOPHEN 325 MG TABLET PO PRN (16:30)
[2017-11-17] MEDS ORDERED: traMADol HCL HCL 50 MG TABLET (ULTRAM) PO PRN ×2 (16:30)
--- NOTE | 2017-11-17 16:39 | NUR ---
CONSULTATION PAGED REASON FOR CONSULTATION:ABNORMAL ECHO WAS CONSULT CALLED?:Y PERSON WHO WAS NOTIFIED:IRASEMA CONSULTING PHYSICIAN:SOPHIE TIDWELL ADVERTISING SALES EXECUTIVE SPECIALTY:CARDIO ADVERTISING SALES EXECUTIVE PHONE NUMBER:[phone] REQUESTING PHYSICIAN:MAMADOU HUGGINS
[2017-11-17] MEDS ORDERED: CHOLECALCIFEROL (VITAMIN D3) 2,000 UNIT TABLET PO ONE (17:00)
--- NOTE | 2017-11-17 17:09 | NUR ---
ROUNDS PT IN BED WATCHING TV. PT STATES SHE HAS BEEN COUGHING, DRY COUGH, NO SPUTUM. PT DENIES ANY PAIN AT THE MOMENT. NO SOB NOTED, NO DISTRESS NOTED. SAFETY MEASURES IN PLACE, CALL LIGHT WITHIN REACH. WILL CONTINUE TO MONITOR.
--- NOTE | 2017-11-17 18:46 | NUR ---
CLOSING NOTE PT IS IN BED RESTING. PT IS ON RA TOLERATING WELL. NO SOB NOTED. PT IS COUGHING LESS, HAS NON-PRODUCTIVE DRY COUGH. PT DENIES ANY PAIN AT THIS MOMENT. PT REFUSES SCD'S. SAFETY MEASURES IN PLACE, BED TO LOWEST POSITION, SIDE RAILS UPX2, CALL LIGHT WITHIN REACH. WILL ENDORSE TO ENDOSCOPY REGISTERED NURSE.
[2017-11-17 20:00] VITALS: BP_SYST 136
--- NOTE | 2017-11-17 20:10 | NUR ---
OPENING NOTE RECEIVED PATIENT AND BEDSIDE REPORT FROM DAY SHIFT NURSE. PATIENT IS AWAKE, ALERT AND ORIENTED IN BED. RECEIVING BREATHING TREATMENT AT THIS TIME. IV TO THE RIGHT IS INTACT AND PATENT. PATIENT REPORTS SORE THROAT. NO OTHER NEEDS AT THIS TIME. FALL AND SAFETY PRECAUTIONS IN PLACE. CALL LIGHT WITH PATIENT. WILL CONTINUE TO MONITOR.
--- NOTE | 2017-11-17 20:45 | NUR ---
MEDICATION ADMINISTRATION MEDICATIONS ADMINISTERED PER DEC. PROVIDED PATIENT WITH PRN MEDICATION FOR SORE THROAT PER REQUEST. NO OTHER NEEDS AT THIS TIME. PATIENT IS RESTING IN BED. DENIES ANY OTHER PAIN OR DISCOMFORT. WILL CONTINUE WITH PLAN OF CARE. CALL LIGHT WITH PATIENT. FALL AND SAFETY PRECAUTIONS IN PLACE.
--- NOTE | 2017-11-17 22:50 | NUR ---
ROUNDING NOTE PATIENT IS ASLEEP IN BED. NO S/S OF DISTRESS OR DISCOMFORT. FALL AND SAFETY PRECAUTIONS IN PLACE. WILL CONTINUE TO MONITOR.
[2017-11-18 00:02] VITALS: BP_SYST 130
--- NOTE | 2017-11-18 00:51 | NUR ---
ROUNDING NOTE PATIENT APPEARS TO BE SLEEPING IN BED. FALL AND SAFETY PRECAUTIONS IN PLACE. NO S/S OF DISTRESS OR DISCOMFORT. WILL CONTINUE TO MONITOR.
--- NOTE | 2017-11-18 02:02 | NUR ---
ROUNDING NOTE PATIENT REMAINS ASLEEP IN BED. BREATHING IS EVEN AND UNLABORED. NO S/S OF DISTRESS OR DISCOMFORT. NO NEW NEEDS AT THIS TIME. WILL CONTINUE TO MONITOR.
[2017-11-18] MEDS: IPRATROPIUM/ALBUTEROL SULFATE 3 ML AMPUL.NEB INH SCH ×4 (03:35→15:32)
--- NOTE | 2017-11-18 04:12 | NUR ---
ROUNDING NOTE PATIENT SLEEPING IN BED. NO NEW NEEDS AT THIS TIME. FALL AND SAFETY PRECAUTIONS IN PLACE. CALL LIGHT WITH PATIENT. WILL CONTINUE TO MONITOR.
--- NOTE | 2017-11-18 06:14 | NUR ---
CLOSING NOTE WILL ENDORSE CARE AND REPORT TO DAYSHIFT NURSE. PATIENT IS SLEEPING IN BED AT THIS TIME. PATIENT IS STABLE WITH NO S/S OF DISTRESS OR DISCOMFORT. ALL NEEDS MET THROUGHOUT SHIFT. NO SIGNIFICANT CHANGES TO NOTE DURING SHIFT. FALL AND SAFETY PRECAUTIONS MAINTAINED. CALL LIGHT WITH PATIENT.
[2017-11-18] MEDS: BUDESONIDE 0.5 MG/2 ML AMPUL.NEB INH SCH (07:36)
--- NOTE | 2017-11-18 07:55 | NUR ---
OPENING NOTE: MORNING REPORT WAS RECEIVED FROM PAINTER BARREL NURSE. PATIENT WAS ASLEEP WITH NO SIGNS OF DISTRESS. PATIENT WOKEN FOR VITAL SIGNS. PATIENT IS ON ROOM AIR. O2 SAT ARE 93%. PATIENT HAS COUGH. DISCUSSED PLAN OF CARE WITH PATIENT. ENCOURAGED TO CALL. CALL LIGHT WITHIN REACH AND BED IN LOWEST POSITION. WILL CONTINUE TO MONITOR.
[2017-11-18 08:30] VITALS: BP_SYST 122
[2017-11-18] MEDS ORDERED: CHOLECALCIFEROL (VITAMIN D3) 2,000 UNIT TABLET PO SCH (09:00)
[2017-11-18] MEDS: cefTRIAXone 1 GM in D5W 50 ML IV SCH (09:16)
[2017-11-18] MEDS: BENZONATATE 100 MG CAPSULE (TESSALON) PO SCH ×2 (09:17→15:12)
[2017-11-18] MEDS: DOXYCYCLINE HYCLATE 100 MG CAPSULE PO SCH (09:18)
[2017-11-18] MEDS: OSELTAMIVIR PHOSPHATE 75 MG CAPSULE PO SCH (09:19)
[2017-11-18] MEDS: PANTOPRAZOLE SODIUM 40 MG TAB PO SCH (09:19)
[2017-11-18] MEDS: DEXAMETHASONE 1 MG TABLET (DECADRON) PO SCH (09:19)
[2017-11-18] MEDS: PROMETHAZINE-DM 6.25 MG-15 MG/5 ML UDC PO SCH ×3 (09:20→17:12)
--- NOTE | 2017-11-18 09:45 | NUR ---
NOTE: PATIENT IS AWAKE. PATIENT COMPLAINS OF SHORTNESS OF BREATH WHEN GOING TO RESTROOM. PATIENT IS ON ROOM AIR. PATIENT HAS A COUGH. FLUIDS ARE INFUSING. PATIENT NOW RESTING WATCHING TV. CALL LIGHT IS IN REACH. WILL CONTINUE TO MONITOR.
[2017-11-18 12:00] VITALS: BP_SYST 121
--- NOTE | 2017-11-18 12:20 | NUR ---
NOTES- In bed, complain of headache of 7/10 pain level. medicated with ultram as ordered. no distress noted.
--- NOTE | 2017-11-18 14:30 | NUR ---
NOTE: PATIENT IS COMFORTABLY SLEEPING IN BED WITH NO SIGNS OF DISTRESS. PATIENT IS ON ROOM AIR. BED IS IN LOWEST POSITION WITH CALL LIGHT IN REACH. WILL CONTINUE TO MONITOR.
[2017-11-18 16:00] VITALS: BP_SYST 129
--- NOTE | 2017-11-18 16:13 | NUR ---
NOTE: PATIENT IS ASLEEP WITH NO SIGNS OF DISTRESS. LIGHTS ARE DIMMED AND NOISE IS MINIMIZED. PATIENT IS ON ROOM AIR. CALL LIGHT IS WITH IN REACH. WILL CONTINUE TO MONITOR.
[2017-11-18] MEDS ORDERED: DOXY-4 PO (17:39)
[2017-11-18] MEDS ORDERED: PRO40 PO (17:40)
[2017-11-18] MEDS ORDERED: PHEDM120 PO (17:41)
[2017-11-18] MEDS ORDERED: FLUT1DIS3 INH (17:42)
[2017-11-18] MEDS ORDERED: IPRA3AMP9 INH (17:43)
[2017-11-18] MEDS ORDERED: DEC1 PO (17:45)
[2017-11-18] MEDS ORDERED: MULT-1189 PO (17:46)
--- NOTE | 2017-11-18 18:40 | NUR ---
CLOSING NOTE: PATIENT IS AWAKE WITH NO SIGNS OF DISTRESS. PATIENT WAS GIVEN DISCHARGE PAPERWORK AND TAUGHT ABOUT NEW MEDICATIONS AND DIAGNOSIS. LET PATIENT KNOW IF SHE HAS ANY QUESTIONS TO ASK. PATIENT IS READY TO LEAVE JUST WAITING FOR TO FUNERAL ARRANGER HER UP.
== END 2017-11-18 19:15 | disposition home or self-care (01) | DRG 202 ==
LOC: SMU 11:40
PROVIDERS: ADMIT Internal Medicine; ATTEND Internal Medicine
DX: J45.901 Unspecified asthma with (acute) exacerbation (principal); Z68.41 Body mass index [BMI] 40.0-44.9, adult; J20.9 Acute bronchitis, unspecified; E78.5 Hyperlipidemia, unspecified; T38.0X5A Adverse effect of glucocorticoids and synthetic analogues, initial encounter; J06.9 Acute upper respiratory infection, unspecified; E66.8 Other obesity; Y92.89 Other specified places as the place of occurrence of the external cause
CPT/HCPCS: 36415; 70486-TC; 71046-TC; 80048; 80053; 80061; 82306; 82962; 83036; 83880; 84439; 84703; 85025; 93306; 94640; 94760; G9035; J0696; J1100; J1815; J7060

== ENCOUNTER 2017-12-28 06:45 | Outpatient (CLI) | payer OTHER ==
[~2017-12-28 06:45] MED LIST changes: +DEC1 PO; +DOXY-4 PO; +FLUT1DIS3 INH; +IPRA3AMP9 INH; +MULT-1189 PO; +PRO40 PO
== END 2017-12-28 21:15 | disposition home or self-care (01) ==
LOC: SLB 06:45
PROVIDERS: ATTEND Internal Medicine
DX: J18.9 Pneumonia, unspecified organism (principal)
CPT/HCPCS: 71046-TC

== ENCOUNTER 2018-02-03 08:13 | Outpatient (CLI) | payer OTHER | END 2018-02-03 20:43 | disposition home or self-care (01) | LOC: SUS 08:13 | PROVIDERS: ATTEND Internal Medicine | DX: K76.0 Fatty (change of) liver, not elsewhere classified (principal); R16.1 Splenomegaly, not elsewhere classified | CPT/HCPCS: 76700-TC ==

== ENCOUNTER 2018-02-06 17:40 | Outpatient (CLI) | payer OTHER | END 2018-02-06 20:20 | disposition home or self-care (01) | LOC: SLB 17:40 | PROVIDERS: ATTEND Internal Medicine | DX: R94.5 Abnormal results of liver function studies (principal); E78.5 Hyperlipidemia, unspecified; Z79.899 Other long term (current) drug therapy | CPT/HCPCS: 36415; 82172; 82247; 82977; 83010; 83883; 84460 ==

== ENCOUNTER 2018-05-31 06:37 | Outpatient (CLI) | payer OTHER ==
[~2018-05-31 06:37] MED LIST changes: -DOXY-4 PO; +DOXY100C PO
[2018-05-31 07:39] LABS: BILIRUBIN,URINE NEGATIVE (NEGATIVE); CLARITY/URINE HAZY (CLEAR); COLOR,URINE YELLOW (YELLOW); GLUCOSE,URINE NEGATIVE (NEGATIVE); KETONES,URINE NEGATIVE (NEGATIVE); LEUKOCYTE ESTERASE ,URINE 3+ (NEGATIVE); NITRITE, URINE NEGATIVE (NEGATIVE); PROTEIN URINE NEGATIVE (NEGATIVE); UROBILINOGEN,URINE 0.2 (0.2-1.0)
[2018-05-31 07:40] LABS: BASOPHILS # (AUTO) 0.1 K/uL (0.0-0.2); BASOPHILS % (AUTO) 1.1 % (0.0-2.0); BLOOD, URINE TRACE (NEGATIVE); EOSINOPHILS # (AUTO) 0.1 K/uL (0.0-0.4); EOSINOPHILS % (AUTO) 1.1 % (0.0-4.0); HEMATOCRIT 43.9 % (36-48); HEMOGLOBIN 14.3 g/dL (12.0-16.0); LYMPHOCYTES # (AUTO) 3.4 K/uL (1.0-5.5); LYMPHOCYTES % (AUTO) 24.7 % (20.5-51.5); MEAN CORPUSCULAR HEMOGLOBIN 26 pg (27-31); MEAN CORPUSCULAR HGB CONC 33 % (32-36); MEAN CORPUSCULAR VOLUME 81 fL (79.0-98.0); MONOCYTES # (AUTO) 0.5 K/uL (0.0-1.0); MONOCYTES % (AUTO) 3.8 % (1.7-9.3); NEUTROPHILS # (AUTO) 9.5 K/uL (1.8-7.7); NEUTROPHILS % (AUTO) 69.3 % (40.0-70.0); PLATELET COUNT (AUTO) 278 K/uL (130-430); RED BLOOD CELL COUNT(AUTO) 5.46 MIL/uL (4.2-6.2); RED CELL DISTRIBUTION WIDTH 15.4 % (9.0-15.0); WHITE BLOOD COUNT (AUTO) 13.6 K/uL (4.8-10.8)
[2018-05-31 07:47] LABS: BACTERIA,URINE MODERATE /HPF (None Seen); CALCIUM OXALATE CRYSTALS,UR 0-10 /HPF (None Seen); MUCUS,URINE 1+ /LPF (None Seen); RBC,URINE 0-3 /HPF (0-3)
[2018-05-31 08:06] LABS: ALBUMIN 3.5 g/dL (3.4-4.8); CALCIUM 9.4 mg/dL (8.4-11.0); CREATININE 0.85 mg/dL (0.55-1.30); FREE T4 (FREE THYROXINE) 0.6 ng/dL (0.6-1.6); POTASSIUM 4.2 mmol/L (3.5-5.1); THYROID STIMULATING HORMONE 2.33 uIu/mL (0.34-4.82); TOTAL BILIRUBIN 0.3 mg/dL (0.0-1.0)
[2018-06-01 08:30] LABS: HEMOGLOBIN A1C 5.2 % (4.8-5.6)
[2018-06-02 09:27] LABS: CORTISOL (SERUM) 13.1 ug/dL (.)
[2018-06-04 14:03] LABS: INSULIN 28.2 uIU/mL (2.6-24.9)
== END 2018-05-31 20:58 | disposition home or self-care (01) ==
LOC: SLB 06:37
PROVIDERS: ATTEND Internal Medicine
DX: Z00.00 Encounter for general adult medical examination without abnormal findings (principal)
CPT/HCPCS: 36415; 80053; 80061; 81000-TC; 82306; 82533; 82607; 83036; 83525; 84439; 84443-TC; 85025

== ENCOUNTER 2018-06-20 08:16 | Outpatient (CLI) | payer OTHER ==
[2018-06-20] MEDS ORDERED: DIATR MEGLU/DIATRIZ SOD 30 ML SOLUTION PO ONE (08:21)
[2018-06-20] MEDS ORDERED: IOHEXOL 100 ML IV ONE (09:28)
== END 2018-06-20 20:14 | disposition home or self-care (01) ==
LOC: SCT 08:16
PROVIDERS: ATTEND Internal Medicine
DX: K86.89 Other specified diseases of pancreas (principal); E78.5 Hyperlipidemia, unspecified; J45.909 Unspecified asthma, uncomplicated
CPT/HCPCS: 74177; Q9964; Q9967

== ENCOUNTER 2019-01-13 20:10 | Emergency (ER) | payer OTHER ==
[~2019-01-13] VITALS: Ht 157.5 cm; Wt 113.4 kg
[2019-01-13 20:20] VITALS: BP_SYST 143
[2019-01-13 20:58] VITALS: BP_SYST 136
== END 2019-01-13 20:58 | disposition home or self-care (01) ==
LOC: SED 20:10
DX: J02.9 Acute pharyngitis, unspecified (principal); J45.909 Unspecified asthma, uncomplicated; R03.0 Elevated blood-pressure reading, without diagnosis of hypertension; Z88.5 Allergy status to narcotic agent; Z79.899 Other long term (current) drug therapy
CPT/HCPCS: 99283

== ENCOUNTER 2019-02-13 20:46 | Emergency (ER) | payer OTHER ==
[~2019-02-13] VITALS: Ht 157.5 cm; Wt 113.4 kg
[2019-02-13 20:58] VITALS: BP_SYST 123
[2019-02-13] MEDS ORDERED: DIPH-TET-PERTUS Vaccine 0.5 ML VIAL (ADACEL) I.M. ONE ×2 (21:15→21:48)
[2019-02-13 21:45] VITALS: BP_SYST 123
== END 2019-02-13 21:45 | disposition home or self-care (01) ==
LOC: SED 20:46
DX: S61.012A Laceration without foreign body of left thumb without damage to nail, initial encounter (principal); J45.909 Unspecified asthma, uncomplicated; Z88.5 Allergy status to narcotic agent; Z79.899 Other long term (current) drug therapy; W26.0XXA Contact with knife, initial encounter; Y93.89 Activity, other specified; Y92.89 Other specified places as the place of occurrence of the external cause; Y99.8 Other external cause status
CPT/HCPCS: 90715; 99283

== ENCOUNTER 2019-08-01 02:17 | Outpatient (CLI) | payer OTHER ==
[2019-08-01 04:38] LABS: BASOPHILS # (AUTO) 0.1 K/uL (0.0-0.2); BASOPHILS % (AUTO) 0.5 % (0.0-2.0); EOSINOPHILS # (AUTO) 0.1 K/uL (0.0-0.4); EOSINOPHILS % (AUTO) 1.1 % (0.0-4.0); HEMOGLOBIN 13.6 g/dL (12.0-16.0); LYMPHOCYTES % (AUTO) 25.5 % (20.5-51.5); MEAN CORPUSCULAR HEMOGLOBIN 27 pg (27-31); MEAN CORPUSCULAR HGB CONC 33 % (32-36); MEAN CORPUSCULAR VOLUME 80 fL (79.0-98.0); MONOCYTES # (AUTO) 0.6 K/uL (0.0-1.0); MONOCYTES % (AUTO) 5.3 % (1.7-9.3); NEUTROPHILS # (AUTO) 8.1 K/uL (1.8-7.7); NEUTROPHILS % (AUTO) 67.6 % (40.0-70.0); PLATELET COUNT (AUTO) 262 K/uL (130-430); RED CELL DISTRIBUTION WIDTH 15.9 % (9.0-15.0); WHITE BLOOD COUNT (AUTO) 11.9 K/uL (4.8-10.8)
[2019-08-01 04:45] LABS: BILIRUBIN,URINE NEGATIVE (NEGATIVE); BLOOD, URINE NEGATIVE (NEGATIVE); CLARITY/URINE CLEAR (CLEAR); COLOR,URINE YELLOW (YELLOW); GLUCOSE,URINE NEGATIVE (NEGATIVE); KETONES,URINE NEGATIVE (NEGATIVE); LEUKOCYTE ESTERASE ,URINE NEGATIVE (NEGATIVE); NITRITE, URINE NEGATIVE (NEGATIVE); PH,URINE 5.5 (5.0-8.0); PROTEIN URINE NEGATIVE (NEGATIVE); UROBILINOGEN,URINE 0.2 (0.2-1.0)
[2019-08-01 05:20] LABS: TOTAL IRON BIND. CAPACITY 258 ug/dL (250-450)
[2019-08-01 05:22] LABS: ALBUMIN 3.3 g/dL (3.4-4.8); CALCIUM 8.8 mg/dL (8.4-11.0); CREATININE 0.9 mg/dL (0.55-1.30); POTASSIUM 3.7 mmol/L (3.5-5.1); THYROID STIMULATING HORMONE 2.09 uIu/mL (0.36-3.74); TOTAL BILIRUBIN 0.3 mg/dL (0.0-1.0)
[2019-08-01 06:02] LABS: ERYTHROCYTE SEDIMENTATION RATE 34 MM/HR (0-20)
== END 2019-08-01 20:00 | disposition home or self-care (01) ==
LOC: SLB 02:17
PROVIDERS: ATTEND Internal Medicine
DX: R53.1 Weakness (principal)
CPT/HCPCS: 36415; 80053; 81003; 83540-TC; 83550-TC; 83735-TC; 84439; 84443-TC; 85025; 85651-TC; 86140

== ENCOUNTER 2019-11-15 06:22 | Emergency (ER) | payer OTHER ==
[~2019-11-15] VITALS: Ht 157.5 cm; Wt 108.9 kg
[2019-11-15 06:25] VITALS: BP_SYST 138
--- NOTE | 2019-11-15 06:25 | NUR ---
Patient triaged and placed in waiting room. VSS and patient appears in no acute distress at this time. Accompanied by SELF, awaiting available bed, and MD notified of need for MSE.
--- NOTE | 2019-11-15 06:48 | NUR ---
Pt taken to Radiology at this time.
[2019-11-15] MEDS ORDERED: IPRATROPIUM/ALBUTEROL SULFATE 3 ML AMPUL.NEB (DUONEB) INH ONE ×2 (07:00→13:45)
--- NOTE | 2019-11-15 07:09 | NUR ---
Placed in room 3 . Placed on skip hoist engineer, blood pressure machine and pulse oximeter. To gown for exam. Side rails up. Report given to day shift nurses.
[2019-11-15 07:22] LABS: BASOPHILS # (AUTO) 0.1 K/uL (0.0-0.2); BASOPHILS % (AUTO) 0.5 % (0.0-2.0); EOSINOPHILS # (AUTO) 0.2 K/uL (0.0-0.4); EOSINOPHILS % (AUTO) 1.6 % (0.0-4.0); HEMATOCRIT 41.8 % (36-48); HEMOGLOBIN 13.7 g/dL (12.0-16.0); LYMPHOCYTES # (AUTO) 3.8 K/uL (1.0-5.5); LYMPHOCYTES % (AUTO) 30.3 % (20.5-51.5); MEAN CORPUSCULAR HEMOGLOBIN 27 pg (27-31); MEAN CORPUSCULAR HGB CONC 33 % (32-36); MEAN CORPUSCULAR VOLUME 81 fL (79.0-98.0); MONOCYTES # (AUTO) 0.7 K/uL (0.0-1.0); NEUTROPHILS # (AUTO) 7.7 K/uL (1.8-7.7); NEUTROPHILS % (AUTO) 61.6 % (40.0-70.0); PLATELET COUNT (AUTO) 285 K/uL (130-430); RED BLOOD CELL COUNT(AUTO) 5.17 MIL/uL (4.2-6.2); RED CELL DISTRIBUTION WIDTH 15.7 % (9.0-15.0); WHITE BLOOD COUNT (AUTO) 12.5 K/uL (4.8-10.8)
[2019-11-15 07:33] LABS: ANION GAP 8 (5-15); CALCIUM 8.5 mg/dL (8.4-11.0); CHLORIDE 103 mmol/L (98-107); CREATININE 0.97 mg/dL (0.55-1.30); GLUCOSE 121 mg/dL (70-99); POTASSIUM 3.9 mmol/L (3.5-5.1); SODIUM SERUM 136 mmol/L (136-145); UREA NITROGEN, BLOOD 13 mg/dL (8-21)
[2019-11-15 07:37] LABS: GFR AFRICAN AMERICAN 83 mL/min (>90)
[2019-11-15 07:42] LABS: ALANINE AMINOTRANSFERASE 25 U/L (12-78); ALBUMIN 3.4 g/dL (3.4-4.8); ASPARTATE AMINOTRANSFERASE 20 U/L (10-37); TOTAL BILIRUBIN 0.3 mg/dL (0.0-1.0)
--- NOTE | 2019-11-15 08:00 | NUR ---
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
[2019-11-15] MEDS ORDERED: methylPREDNISolone SOD SUCC/PF 62.5 MG/ML VIAL IVP ONE (09:15)
[2019-11-15] MEDS ORDERED: MAGNESIUM SULFATE 50 ML IV ONE (09:15)
--- NOTE | 2019-11-15 10:20 | NUR ---
pt received breathing treatment
--- NOTE | 2019-11-15 12:44 | NUR ---
resting on monitoring tech VSS
--- NOTE | 2019-11-15 13:30 | NUR ---
PT IS SLEEPING IN BED, NO DISTRESS NOTED, NO C/O PAIN AT THIS TIME
[2019-11-15] MEDS ORDERED: IPRATROPIUM/ALBUTEROL SULFATE 3 ML AMPUL.NEB (DUONEB) ONE (14:02)
[2019-11-15 14:20] VITALS: BP_SYST 129
--- NOTE | 2019-11-15 14:20 | NUR ---
Patient given written and verbal discharge instructions and verbalizes understanding. ER MD discussed with patient the results and treatment provided. Patient in stable condition. ID arm band removed. IV catheter removed intact and dressing applied, no active bleeding. Rx of LEVAQUIUN AND MEDROL given. Patient educated on pain management and to follow up with PMD. Pain Scale 0/10. Opportunity for questions provided and answered. Medication side effect fact sheet provided.
[2019-11-15] MEDS ORDERED: VANCOMYCIN HCL 1,000 MG in NS 250 ML IV ONE (14:30)
[2019-11-15] MEDS ORDERED: MEROPENEM 500 MG in NS 50 ML IV ONE (14:30)
== END 2019-11-15 14:20 | disposition home or self-care (01) ==
LOC: SED 06:22
DX: J45.909 Unspecified asthma, uncomplicated (principal); Z79.899 Other long term (current) drug therapy
CPT/HCPCS: 36415; 71046; 80053; 83880; 84484; 85025; 85379; 93005; 94640; 94760; 96365; 96366; 96375; 99284; J2930; J3475; J7620

== ENCOUNTER → 2020-01-05 | Outpatient (CLI) | payer OTHER | END | disposition home or self-care (01) | LOC: SRD 23:44 | PROVIDERS: ATTEND Internal Medicine | DX: J98.11 Atelectasis (principal); J18.9 Pneumonia, unspecified organism | CPT/HCPCS: 71046-TC ==

== ENCOUNTER 2020-04-26 22:57 | Emergency (ER) | payer OTHER ==
[~2020-04-26] VITALS: Ht 157.5 cm; Wt 108.9 kg
[2020-04-26] MEDS ORDERED: MORPHINE 4 MG/ML INJ. SYRINGE IM ONE (23:30)
[2020-04-26 23:45] VITALS: BP_SYST 118
--- NOTE | 2020-04-27 00:25 | NUR ---
Patient to ER bed 1 to gown for evaluation. Side rails up.
[2020-04-27] MEDS ORDERED: NACL 0.9% 1,000 ML IV ONE ×2 (00:30→03:30)
[2020-04-27] MEDS ORDERED: MORPHINE 4 MG/ML INJ. SYRINGE IVP ONE (00:30)
[2020-04-27 00:32] LABS: BILIRUBIN,URINE NEGATIVE (NEGATIVE); BLOOD, URINE NEGATIVE (NEGATIVE); CLARITY/URINE CLEAR (CLEAR); COLOR,URINE YELLOW (YELLOW); GLUCOSE,URINE NEGATIVE (NEGATIVE); KETONES,URINE NEGATIVE (NEGATIVE); LEUKOCYTE ESTERASE ,URINE 1+ (NEGATIVE); NITRITE, URINE NEGATIVE (NEGATIVE); PH,URINE 5.5 (5.0-8.0); PROTEIN URINE NEGATIVE (NEGATIVE); UROBILINOGEN,URINE 0.2 (0.2-1.0)
[2020-04-27 00:41] LABS: BACTERIA,URINE MODERATE /HPF (None Seen); RBC,URINE 0-3 /HPF (0-3)
[2020-04-27] MEDS ORDERED: ONDANSETRON HCL 4 MG/2 ML VIAL IVP ONE (00:45)
--- NOTE | 2020-04-27 01:00 | NUR ---
Dr. Martin bedside for pt eval
[2020-04-27] MEDS ORDERED: cefTRIAXone 1 GM in D5W 50 ML IV ONE (01:15)
--- NOTE | 2020-04-27 01:15 | NUR ---
Pt BIB house sup to ED C/O Head ache/pain radiating to L side of face 04/29. Hx of bug bites/[place] No other complaints and or injuries noted VSS no s/s of acute distress Resting on gurney rails up
[2020-04-27 01:20] LABS: CALCIUM 8.9 mg/dL (8.4-11.0); CREATININE 1.15 mg/dL (0.55-1.30); POTASSIUM 3.8 mmol/L (3.5-5.1)
[2020-04-27 01:27] LABS: ALBUMIN 3.3 g/dL (3.4-4.8); TOTAL BILIRUBIN 0.3 mg/dL (0.0-1.0)
[2020-04-27] MEDS ORDERED: cefTRIAXone 1 GM VIAL ONE ×2 (01:27→02:36)
[2020-04-27] MEDS ORDERED: KETOROLAC TROMETHAMINE 30 MG VIAL IVP ONE (02:15)
--- NOTE | 2020-04-27 02:22 | NUR ---
Pt stated feeling better, but is aware of possible UTI
[2020-04-27 02:29] LABS: BASOPHILS % (AUTO) 0.4 % (0.0-2.0); EOSINOPHILS # (AUTO) 0.2 K/uL (0.0-0.4); EOSINOPHILS % (AUTO) 1.5 % (0.0-4.0); HEMATOCRIT 39.6 % (36-48); HEMOGLOBIN 12.9 g/dL (12.0-16.0); LYMPHOCYTES # (AUTO) 2.9 K/uL (1.0-5.5); LYMPHOCYTES % (AUTO) 26.2 % (20.5-51.5); MEAN CORPUSCULAR HEMOGLOBIN 26 pg (27-31); MEAN CORPUSCULAR HGB CONC 33 % (32-36); MEAN CORPUSCULAR VOLUME 80 fL (79.0-98.0); MONOCYTES # (AUTO) 0.6 K/uL (0.0-1.0); MONOCYTES % (AUTO) 5.6 % (1.7-9.3); NEUTROPHILS # (AUTO) 7.4 K/uL (1.8-7.7); NEUTROPHILS % (AUTO) 66.3 % (40.0-70.0); PLATELET COUNT (AUTO) 231 K/uL (130-430); RED BLOOD CELL COUNT(AUTO) 4.94 MIL/uL (4.2-6.2); RED CELL DISTRIBUTION WIDTH 16.2 % (9.0-15.0); WHITE BLOOD COUNT (AUTO) 11.2 K/uL (4.8-10.8)
--- NOTE | 2020-04-27 03:18 | NUR ---
VSS no s/s of acute distress Resting on gurney rails up
--- NOTE | 2020-04-27 04:22 | NUR ---
Dr. Martin verbal confirm no need for 2nd lactic lab draw
[2020-04-27 05:30] VITALS: BP_SYST 118
--- NOTE | 2020-04-27 05:30 | NUR ---
Patient given written and verbal discharge instructions and verbalizes understanding. ER MD discussed with patient the results and treatment provided. Patient in stable condition. ID arm band removed. IV catheter removed intact and dressing applied, no active bleeding. Rx of [place], Ibuprofen and Keflex given. Patient educated on pain management and to follow up with PMD. Pain Scale 0/10 Opportunity for questions provided and answered. Medication side effect fact sheet provided.
== END 2020-04-27 05:30 | disposition home or self-care (01) ==
LOC: SED 22:57
DX: E86.0 Dehydration (principal); N39.0 Urinary tract infection, site not specified; J45.909 Unspecified asthma, uncomplicated; Z88.5 Allergy status to narcotic agent; Z79.899 Other long term (current) drug therapy
CPT/HCPCS: 36415; 70450; 80053; 81000; 81025; 82306; 83605; 85025; 87040; 87086; 96361; 96365; 96375; 99284; J0696; J1885; J2270; J2405; J7030

== ENCOUNTER 2020-06-17 20:53 | Emergency (ER) | payer OTHER ==
[~2020-06-17] VITALS: Ht 157.5 cm; Wt 108.9 kg
[2020-06-17 20:55] VITALS: BP_SYST 140
--- NOTE | 2020-06-17 20:57 | NUR ---
Patient to ER bed 7 to gown for evaluation. Side rails up.
--- NOTE | 2020-06-17 20:59 | NUR ---
Patient came to ER with family. C/O asthma x 3 days. Patient states " my asthma fare up for 3 days, last used [facility] after noon and not better, I did test Covid yesterday and result came back today, was negative."
--- NOTE | 2020-06-17 21:11 | NUR ---
ER at bedside examining patient.
[2020-06-17] MEDS ORDERED: methylPREDNISolone SOD SUCC/PF 62.5 MG/ML VIAL IVP ONE (21:15)
[2020-06-17] MEDS ORDERED: MAGNESIUM SULFATE 50 ML IV ONE (21:15)
--- NOTE | 2020-06-17 21:37 | NUR ---
# 20 gauge angiocath placed to RAC. Use of asceptic technique. Opsite placed over site. Blood return noted. Blood for lab drawn from site. Flushed with 10 cc of normal saline. No evidence of infiltration noted. Patient tolerated well.
--- NOTE | 2020-06-17 22:29 | NUR ---
Patient resting quietly. No acute distress noted. Vital signs within normal range.
[2020-06-17 23:02] VITALS: BP_SYST 137
--- NOTE | 2020-06-17 23:02 | NUR ---
Patient given written and verbal discharge instructions and verbalizes understanding. ER MD discussed with patient the results and treatment provided. Patient in stable condition. ID arm band removed. IV catheter removed intact and dressing applied, no active bleeding. Rx of Advir Diskus and Albuterol Sulfate given. Patient educated on pain management and to follow up with PMD. Pain Scale 0/10. Opportunity for questions provided and answered. Medication side effect fact sheet provided.
== END 2020-06-17 23:02 | disposition home or self-care (01) ==
LOC: SED 20:53
DX: J44.1 Chronic obstructive pulmonary disease with (acute) exacerbation (principal); Z88.5 Allergy status to narcotic agent; Z79.899 Other long term (current) drug therapy
CPT/HCPCS: 96365; 96375; 99284; J2930; J3475

== ENCOUNTER → 2020-06-21 | Outpatient (CLI) | payer OTHER ==
[2020-06-21 23:38] LABS: HCG,QUAL RESULT NEGATIVE (NEGATIVE)
[2020-06-21 23:39] LABS: BASOPHILS # (AUTO) 0.1 K/uL (0.0-0.2); BASOPHILS % (AUTO) 0.4 % (0.0-2.0); EOSINOPHILS # (AUTO) 0.2 K/uL (0.0-0.4); HEMATOCRIT 43.2 % (36-48); LYMPHOCYTES % (AUTO) 21.8 % (20.5-51.5); MEAN CORPUSCULAR HEMOGLOBIN 26 pg (27-31); MEAN CORPUSCULAR HGB CONC 33 % (32-36); MEAN CORPUSCULAR VOLUME 80 fL (79.0-98.0); MONOCYTES # (AUTO) 0.9 K/uL (0.0-1.0); MONOCYTES % (AUTO) 4.7 % (1.7-9.3); NEUTROPHILS # (AUTO) 13.1 K/uL (1.8-7.7); NEUTROPHILS % (AUTO) 72.1 % (40.0-70.0); PLATELET COUNT (AUTO) 296 K/uL (130-430); RED BLOOD CELL COUNT(AUTO) 5.43 MIL/uL (4.2-6.2); RED CELL DISTRIBUTION WIDTH 16.2 % (9.0-15.0); WHITE BLOOD COUNT (AUTO) 18.1 K/uL (4.8-10.8)
[2020-06-21 23:53] LABS: POTASSIUM 3.2 mmol/L (3.5-5.1)
[2020-06-22 00:01] LABS: ALBUMIN 3.3 g/dL (3.4-4.8); C-REACTIVE PROTEIN QUANT 3.2 mg/dL (0-0.5); TOTAL BILIRUBIN 0.3 mg/dL (0.0-1.0)
== END | disposition home or self-care (01) ==
LOC: SLB 23:22
PROVIDERS: ATTEND Internal Medicine
DX: J45.901 Unspecified asthma with (acute) exacerbation (principal)
CPT/HCPCS: 36415; 80053; 84703; 85025; 86140

== ENCOUNTER 2020-06-22 22:00 | Outpatient (CLI) | payer OTHER | END 2020-06-22 23:00 | disposition home or self-care (01) | LOC: SLB 22:00 | PROVIDERS: ATTEND Internal Medicine | DX: J45.901 Unspecified asthma with (acute) exacerbation (principal) | CPT/HCPCS: 71046-TC ==

== ENCOUNTER 2020-07-06 13:21 | Emergency (ER) | payer OTHER ==
[~2020-07-06] VITALS: Ht 162.6 cm; Wt 113.4 kg
[2020-07-06 13:30] VITALS: BP_SYST 148
--- NOTE | 2020-07-06 13:30 | NUR ---
Patient to ER bed 04 to gown for evaluation. Side rails up.
--- NOTE | 2020-07-06 13:35 | NUR ---
Pt to room 4 and placed in [facility]. Side rails up. Denies dizziness at this time.
[2020-07-06] MEDS ORDERED: NACL 0.9% 1,000 ML IV ONE (13:41)
[2020-07-06] MEDS ORDERED: PROCHLORPERAZINE EDISYLATE 10 MG/2 ML VIAL IVP ONE (13:45)
[2020-07-06] MEDS ORDERED: KETOROLAC TROMETHAMINE 30 MG VIAL IVP ONE (13:45)
[2020-07-06] MEDS ORDERED: DIPHENHYDRAMINE INJ 50 MG/ML VIAL IVP ONE (13:45)
--- NOTE | 2020-07-06 13:45 | NUR ---
ER Dr. Orr at bedside examining patient.
[2020-07-06] MEDS ORDERED: MECLIZINE HCL 25 MG TABLET (ANITVERT) PO ONE (14:15)
[2020-07-06 14:45] LABS: BILIRUBIN,URINE NEGATIVE (NEGATIVE); BLOOD, URINE 1+ (NEGATIVE); COLOR,URINE YELLOW (YELLOW); GLUCOSE,URINE NEGATIVE (NEGATIVE); KETONES,URINE NEGATIVE (NEGATIVE); LEUKOCYTE ESTERASE ,URINE NEGATIVE (NEGATIVE); NITRITE, URINE NEGATIVE (NEGATIVE); PROTEIN URINE NEGATIVE (NEGATIVE); UROBILINOGEN,URINE 0.2 (0.2-1.0)
[2020-07-06 14:47] LABS: CLARITY/URINE SLIGHTLY HAZY (CLEAR)
[2020-07-06 14:47] LABS: BASOPHILS % (AUTO) 0.4 % (0.0-2.0); EOSINOPHILS # (AUTO) 0.1 K/uL (0.0-0.4); EOSINOPHILS % (AUTO) 0.5 % (0.0-4.0); HEMATOCRIT 39.8 % (36-48); HEMOGLOBIN 13.1 g/dL (12.0-16.0); LYMPHOCYTES # (AUTO) 1.8 K/uL (1.0-5.5); LYMPHOCYTES % (AUTO) 16.3 % (20.5-51.5); MEAN CORPUSCULAR HEMOGLOBIN 26 pg (27-31); MEAN CORPUSCULAR HGB CONC 33 % (32-36); MEAN CORPUSCULAR VOLUME 80 fL (79.0-98.0); MONOCYTES # (AUTO) 0.5 K/uL (0.0-1.0); MONOCYTES % (AUTO) 4.3 % (1.7-9.3); NEUTROPHILS # (AUTO) 8.7 K/uL (1.8-7.7); NEUTROPHILS % (AUTO) 78.5 % (40.0-70.0); PLATELET COUNT (AUTO) 194 K/uL (130-430); RED BLOOD CELL COUNT(AUTO) 4.98 MIL/uL (4.2-6.2); RED CELL DISTRIBUTION WIDTH 16.3 % (9.0-15.0); WHITE BLOOD COUNT (AUTO) 11.1 K/uL (4.8-10.8)
[2020-07-06 14:53] LABS: BACTERIA,URINE FEW /HPF (None Seen); MUCUS,URINE 1+ /LPF (None Seen); WBC,URINE 0-3 /HPF (0-3)
[2020-07-06 15:20] LABS: CALCIUM 8.1 mg/dL (8.4-11.0); POTASSIUM 3.8 mmol/L (3.5-5.1)
[2020-07-06 15:25] LABS: ALBUMIN 2.5 g/dL (3.4-4.8); TOTAL BILIRUBIN 0.2 mg/dL (0.0-1.0)
--- NOTE | 2020-07-06 16:37 | NUR ---
denies pain. Denies Nausea and no emesis while in ER.
--- NOTE | 2020-07-06 16:42 | NUR ---
Patient given written and verbal discharge instructions and verbalizes understanding. ER MD discussed with patient the results and treatment provided. Patient in stable condition. ID arm band removed. IV catheter removed intact and dressing applied, no active bleeding. Rx of diazapam and antivert given. Patient educated on pain management and to follow up with PMD. Pain Scale 0/10. Opportunity for questions provided and answered. Medication side effect fact sheet provided.
[2020-07-06 16:45] VITALS: BP_SYST 148
== END 2020-07-06 16:42 | disposition home or self-care (01) ==
LOC: SED 13:21
DX: H81.10 Benign paroxysmal vertigo, unspecified ear (principal); Z79.899 Other long term (current) drug therapy; Z88.5 Allergy status to narcotic agent
CPT/HCPCS: 36415; 80053; 81000; 85025; 96361; 96374; 96375; 99284; J0780; J1200; J1885; J7030

== ENCOUNTER → 2020-09-07 | Outpatient (CLI) | payer OTHER ==
[2020-09-07 16:28] LABS: BASOPHILS # (AUTO) 0.1 K/uL (0.0-0.2); BASOPHILS % (AUTO) 0.5 % (0.0-2.0); EOSINOPHILS # (AUTO) 0.1 K/uL (0.0-0.4); EOSINOPHILS % (AUTO) 1.3 % (0.0-4.0); HEMATOCRIT 42.9 % (36-48); HEMOGLOBIN 14.4 g/dL (12.0-16.0); LYMPHOCYTES # (AUTO) 2.7 K/uL (1.0-5.5); LYMPHOCYTES % (AUTO) 24.9 % (20.5-51.5); MEAN CORPUSCULAR HEMOGLOBIN 27 pg (27-31); MEAN CORPUSCULAR HGB CONC 34 % (32-36); MEAN CORPUSCULAR VOLUME 79 fL (79.0-98.0); MONOCYTES # (AUTO) 0.5 K/uL (0.0-1.0); NEUTROPHILS # (AUTO) 7.3 K/uL (1.8-7.7); NEUTROPHILS % (AUTO) 68.3 % (40.0-70.0); PLATELET COUNT (AUTO) 272 K/uL (130-430); RED BLOOD CELL COUNT(AUTO) 5.44 MIL/uL (4.2-6.2); RED CELL DISTRIBUTION WIDTH 16.4 % (9.0-15.0); WHITE BLOOD COUNT (AUTO) 10.7 K/uL (4.8-10.8)
[2020-09-07 17:02] LABS: ALBUMIN 3.5 g/dL (3.4-4.8); CALCIUM 9.2 mg/dL (8.4-11.0); CREATININE 0.92 mg/dL (0.55-1.30); THYROID STIMULATING HORMONE 1.81 uIu/mL (0.34-4.82); TOTAL BILIRUBIN 0.4 mg/dL (0.0-1.0)
[2020-09-07 17:03] LABS: BILIRUBIN,URINE NEGATIVE (NEGATIVE); BLOOD, URINE 1+ (NEGATIVE); CLARITY/URINE SL CLOUDY (CLEAR); COLOR,URINE YELLOW (YELLOW); GLUCOSE,URINE NEGATIVE (NEGATIVE); KETONES,URINE NEGATIVE (NEGATIVE); LEUKOCYTE ESTERASE ,URINE TRACE (NEGATIVE); NITRITE, URINE NEGATIVE (NEGATIVE); PH,URINE 5.5 (5.0-8.0); PROTEIN URINE NEGATIVE (NEGATIVE); UROBILINOGEN,URINE 0.2 (0.2-1.0)
[2020-09-07 17:43] LABS: BACTERIA,URINE None Seen /HPF (None Seen); WBC,URINE 0-3 /HPF (0-3)
[2020-09-07 17:44] LABS: CALCIUM PHOSPHATE CRYSTALS,UR None Seen /HPF (None Seen); TRICHOMONAS,URINE None Seen /HPF (None Seen); YEAST,URINE None Seen /HPF (None Seen)
[2020-09-08 09:53] LABS: HEMOGLOBIN A1C 5.4 % (4.8-5.6)
[2020-09-08 14:24] LABS: ERYTHROCYTE SEDIMENTATION RATE 28 MM/HR (0-20)
== END | disposition home or self-care (01) ==
LOC: SLB 15:21
PROVIDERS: ATTEND Internal Medicine
DX: M77.51 Other enthesopathy of right foot and ankle (principal); M77.52 Other enthesopathy of left foot and ankle; M79.89 Other specified soft tissue disorders; R10.9 Unspecified abdominal pain; J45.909 Unspecified asthma, uncomplicated
CPT/HCPCS: 36415; 71046-TC; 73620; 74018; 80053; 80061; 81000-TC; 82306; 82607; 83036; 83735-TC; 84443-TC; 85025; 85651-TC; 87086

== ENCOUNTER 2020-09-29 09:42 | Emergency (ER) | payer OTHER ==
[~2020-09-29] VITALS: Ht 157.5 cm; Wt 122.5 kg
[2020-09-29 09:42] VITALS: BP_SYST 147
--- NOTE | 2020-09-29 09:42 | NUR ---
TRIAGED AND BROUGHT BACK TO BED #1, WILL ASSUME CARE.
--- NOTE | 2020-09-29 09:47 | NUR ---
PT STATES WHILE CLEANING SHOWER WITH KABOOM, PT STATES SHE HAD A SYNCOPAL EPISODE, LANDING ON RIGHT SHOULDER AND RIGHT CHEST ON SHOWER TRACK. LARGE BRUISING NOTED TO LEFT UPPER ARM. PT STATES SHE HAD ORAL TRAUMA WHEN SHE "WOKE UP". PT STATES SHE DOES NOT REMEMBER ANYTHING. PT STATES SHE IS VERY LETHARGIC AND DIZZY SINCE.
--- NOTE | 2020-09-29 09:49 | NUR ---
DR DIOP AT BEDSIDE FOR EVALUATION
--- NOTE | 2020-09-29 11:00 | NUR ---
# 22 gauge angiocath placed to RAC. Use of asceptic technique. Opsite placed over site. Blood return noted. Blood for lab drawn from site. Flushed with 10 cc of normal saline. No evidence of infiltration noted. Patient tolerated well.
--- NOTE | 2020-09-29 11:30 | NUR ---
NS 1l currently infusing per MD order
[2020-09-29 12:10] LABS: BILIRUBIN,URINE NEGATIVE (NEGATIVE); CLARITY/URINE SL CLOUDY (CLEAR); COLOR,URINE YELLOW (YELLOW); GLUCOSE,URINE NEGATIVE (NEGATIVE); KETONES,URINE NEGATIVE (NEGATIVE); LEUKOCYTE ESTERASE ,URINE 2+ (NEGATIVE); NITRITE, URINE NEGATIVE (NEGATIVE); PROTEIN URINE NEGATIVE (NEGATIVE); UROBILINOGEN,URINE 0.2 (0.2-1.0)
[2020-09-29 12:11] LABS: HCG,QUAL RESULT NEGATIVE (NEGATIVE)
[2020-09-29 12:12] LABS: BLOOD, URINE TRACE (NEGATIVE)
--- NOTE | 2020-09-29 12:26 | NUR ---
Patient transported to radiology via gurney, accompanied by thermoplastic technician.
[2020-09-29 12:27] LABS: BACTERIA,URINE MODERATE /HPF (None Seen)
[2020-09-29 12:36] LABS: BASOPHILS % (AUTO) 0.4 % (0.0-2.0); EOSINOPHILS # (AUTO) 0.2 K/uL (0.0-0.4); EOSINOPHILS % (AUTO) 1.6 % (0.0-4.0); HEMATOCRIT 42.9 % (36-48); HEMOGLOBIN 14.2 g/dL (12.0-16.0); LYMPHOCYTES # (AUTO) 2.9 K/uL (1.0-5.5); LYMPHOCYTES % (AUTO) 27.1 % (20.5-51.5); MEAN CORPUSCULAR HEMOGLOBIN 27 pg (27-31); MEAN CORPUSCULAR HGB CONC 33 % (32-36); MEAN CORPUSCULAR VOLUME 80 fL (79.0-98.0); MONOCYTES # (AUTO) 0.4 K/uL (0.0-1.0); MONOCYTES % (AUTO) 3.9 % (1.7-9.3); NEUTROPHILS # (AUTO) 7.3 K/uL (1.8-7.7); PLATELET COUNT (AUTO) 254 K/uL (130-430); RED BLOOD CELL COUNT(AUTO) 5.38 MIL/uL (4.2-6.2); RED CELL DISTRIBUTION WIDTH 16.3 % (9.0-15.0); WHITE BLOOD COUNT (AUTO) 10.9 K/uL (4.8-10.8)
[2020-09-29 12:52] LABS: CALCIUM 8.6 mg/dL (8.4-11.0); CREATININE 0.88 mg/dL (0.55-1.30); POTASSIUM 3.6 mmol/L (3.5-5.1)
[2020-09-29 12:59] LABS: ALBUMIN 3.3 g/dL (3.4-4.8); TOTAL BILIRUBIN 0.3 mg/dL (0.0-1.0)
--- NOTE | 2020-09-29 13:11 | NUR ---
ekg done and given to
--- NOTE | 2020-09-29 14:07 | NUR ---
Patient given written and verbal discharge instructions and verbalizes understanding. ER MD discussed with patient the results and treatment provided. Patient in stable condition. ID arm band removed. IV catheter removed intact and dressing applied, no active bleeding. Rx of Kelfex given. Patient educated on pain management and to follow up with PMD. Pain Scale 3/10. Opportunity for questions provided and answered. Medication side effect fact sheet provided.
--- NOTE | 2020-09-29 14:14 | NUR ---
care endorsed to Dina AVERY
[2020-09-29 14:20] VITALS: BP_SYST 133
--- NOTE | 2020-09-29 14:31 | NUR ---
Pt A&Ox4, VSS, respirations even and unlabored.
--- NOTE | 2020-09-29 14:31 | NUR ---
Pt moved to , awaiting for fluids to finish
--- NOTE | 2020-09-29 14:57 | NUR ---
pt left at this time
== END 2020-09-29 14:07 | disposition home or self-care (01) ==
LOC: SED 09:42
DX: R55 Syncope and collapse (principal)
CPT/HCPCS: 36415; 70450-TC; 76376; 80053; 81000-TC; 81003; 84484; 84703; 85025; 87086; 93005; 99284

== ENCOUNTER 2020-12-07 01:24 | Outpatient (CLI) | payer OTHER | END 2020-12-07 20:54 | disposition home or self-care (01) | LOC: SRD 01:24 | PROVIDERS: ATTEND Internal Medicine | DX: S32.10XA Unspecified fracture of sacrum, initial encounter for closed fracture (principal); X58.XXXA Exposure to other specified factors, initial encounter; Y93.89 Activity, other specified; Y92.89 Other specified places as the place of occurrence of the external cause; Y99.8 Other external cause status | CPT/HCPCS: 72220-TC ==

== ENCOUNTER 2020-12-23 11:51 | Outpatient (CLI) | payer OTHER | END 2020-12-23 21:29 | disposition home or self-care (01) | LOC: SCT 11:51 | PROVIDERS: ATTEND Internal Medicine | DX: S32.10XA Unspecified fracture of sacrum, initial encounter for closed fracture (principal); X58.XXXA Exposure to other specified factors, initial encounter; Y93.89 Activity, other specified; Y92.89 Other specified places as the place of occurrence of the external cause; Y99.8 Other external cause status | CPT/HCPCS: 72192-TC ==

== ENCOUNTER 2021-04-05 15:46 | Outpatient (CLI) | payer OTHER ==
[2021-04-05 16:42] LABS: BILIRUBIN,URINE NEGATIVE (NEGATIVE); COLOR,URINE YELLOW (YELLOW); GLUCOSE,URINE NEGATIVE (NEGATIVE); KETONES,URINE NEGATIVE (NEGATIVE); LEUKOCYTE ESTERASE ,URINE 3+ (NEGATIVE); NITRITE, URINE NEGATIVE (NEGATIVE); PROTEIN URINE NEGATIVE (NEGATIVE); UROBILINOGEN,URINE 0.2 (0.2-1.0)
[2021-04-05 16:50] LABS: BASOPHILS % (AUTO) 0.3 % (0.0-2.0); EOSINOPHILS # (AUTO) 0.1 K/uL (0.0-0.4); EOSINOPHILS % (AUTO) 0.7 % (0.0-4.0); HEMATOCRIT 42.3 % (36-48); HEMOGLOBIN 14.2 g/dL (12.0-16.0); LYMPHOCYTES # (AUTO) 2.7 K/uL (1.0-5.5); LYMPHOCYTES % (AUTO) 18.1 % (20.5-51.5); MEAN CORPUSCULAR HEMOGLOBIN 26 pg (27-31); MEAN CORPUSCULAR HGB CONC 34 % (32-36); MEAN CORPUSCULAR VOLUME 78 fL (79.0-98.0); MONOCYTES # (AUTO) 0.6 K/uL (0.0-1.0); MONOCYTES % (AUTO) 3.8 % (1.7-9.3); NEUTROPHILS # (AUTO) 11.4 K/uL (1.8-7.7); NEUTROPHILS % (AUTO) 77.1 % (40.0-70.0); PLATELET COUNT (AUTO) 271 K/uL (130-430); RED BLOOD CELL COUNT(AUTO) 5.41 MIL/uL (4.2-6.2); RED CELL DISTRIBUTION WIDTH 15.8 % (9.0-15.0); WHITE BLOOD COUNT (AUTO) 14.8 K/uL (4.8-10.8)
[2021-04-05 16:58] LABS: BLOOD, URINE TRACE (NEGATIVE); CLARITY/URINE SLIGHTLY HAZY (CLEAR)
[2021-04-05 17:16] LABS: BACTERIA,URINE MODERATE /HPF (None Seen); RBC,URINE 0-3 /HPF (0-3)
[2021-04-05 17:17] LABS: ALBUMIN 3.4 g/dL (3.4-4.8); CALCIUM 8.9 mg/dL (8.4-11.0); CREATININE 0.93 mg/dL (0.55-1.30); POTASSIUM 4.2 mmol/L (3.5-5.1); THYROID STIMULATING HORMONE 1.33 uIu/mL (0.36-3.74); TOTAL BILIRUBIN 0.3 mg/dL (0.0-1.0)
[2021-04-05 17:17] LABS: MUCUS,URINE 1+ /LPF (None Seen)
[2021-04-05 17:34] LABS: ERYTHROCYTE SEDIMENTATION RATE 39 MM/HR (0-20)
[2021-04-06 03:06] LABS: HEMOGLOBIN A1C 5.4 % (4.8-5.6)
== END 2021-04-05 20:30 | disposition home or self-care (01) ==
LOC: SLB 15:46
PROVIDERS: ATTEND Internal Medicine
DX: J45.909 Unspecified asthma, uncomplicated (principal); R73.9 Hyperglycemia, unspecified; E66.01 Morbid (severe) obesity due to excess calories; I49.9 Cardiac arrhythmia, unspecified; E55.9 Vitamin D deficiency, unspecified
CPT/HCPCS: 36415; 71046-TC; 80053; 80061; 81000; 82306; 82607; 83036; 84443; 84703; 85025; 85651-TC; 87086; 93005

== ENCOUNTER 2021-09-22 16:53 | Emergency (ER) | payer OTHER ==
[~2021-09-22] VITALS: Ht 162.6 cm; Wt 86.2 kg
--- NOTE | 2021-09-22 17:00 | NUR ---
Patient to room 6. First contact made with patient. Reporting a "tooth abcess." Awake, alert and oriented x 3. VSS. Will continue to monitor.
[2021-09-22 17:05] VITALS: BP_SYST 134
--- NOTE | 2021-09-22 17:05 | NUR ---
Dr Villar to bedside to evaluate patient
--- NOTE | 2021-09-22 17:46 | NUR ---
Patient given written and verbal discharge instructions and verbalizes understanding. ER MD discussed with patient the results and treatment provided. Patient in stable condition. ID arm band removed. Rx of Augmentin, [place], Motrin and Zofran given. Patient educated on pain management and to follow up with PMD. Opportunity for questions provided and answered. Medication side effect fact sheet provided.
[2021-09-22 17:48] VITALS: BP_SYST 134
== END 2021-09-22 17:46 | disposition home or self-care (01) ==
LOC: SED 16:53
DX: K08.89 Other specified disorders of teeth and supporting structures (principal)
CPT/HCPCS: 99283

== ENCOUNTER 2021-11-08 16:39 | Emergency (ER) | payer OTHER ==
[~2021-11-08] VITALS: Ht 157.5 cm; Wt 122.5 kg
[2021-11-08 17:00] VITALS: BP_SYST 151
--- NOTE | 2021-11-08 17:00 | NUR ---
Placed in room 3 . Placed on hall monitor, blood pressure machine and pulse oximeter. To gown for exam. Side rails up. Report given to GENA FOX.
--- NOTE | 2021-11-08 17:24 | NUR ---
Pt in bed resting. C/o pain in upper neck and head. Rates pain 7/10. Pain started 2 weeks ago. But now pt states the light hurts her eyes. Denies n/v. No chest pain and no sob. BP 151/100, all other vitals stable. A&Ox4. Skin intact. Bed in lowest position.
--- NOTE | 2021-11-08 17:29 | NUR ---
Urine collected and sent to lab.
[2021-11-08] MEDS ORDERED: NACL 0.9% 1,000 ML IV ONE (17:30)
[2021-11-08] MEDS ORDERED: PROCHLORPERAZINE EDISYLATE 10 MG/2 ML VIAL IVP ONE (17:30)
[2021-11-08] MEDS ORDERED: KETOROLAC TROMETHAMINE 30 MG VIAL IVP ONE (17:30)
[2021-11-08] MEDS ORDERED: MORPHINE 2 MG/ML INJ. SYRINGE IVP ONE (17:30)
--- NOTE | 2021-11-08 18:28 | NUR ---
22g IV placed on right AC. Medications administered. NS 0.9 running bolus.
[2021-11-08] MEDS ORDERED: DIPHENHYDRAMINE INJ 50 MG/ML VIAL IVP ONE (18:30)
[2021-11-08 18:34] LABS: BASOPHILS % (AUTO) 0.4 % (0.0-2.0); EOSINOPHILS # (AUTO) 0.1 K/uL (0.0-0.4); EOSINOPHILS % (AUTO) 1.4 % (0.0-4.0); HEMATOCRIT 44.1 % (36-48); HEMOGLOBIN 14.6 g/dL (12.0-16.0); LYMPHOCYTES % (AUTO) 23.2 % (20.5-51.5); MEAN CORPUSCULAR HEMOGLOBIN 26 pg (27-31); MEAN CORPUSCULAR HGB CONC 33 % (32-36); MEAN CORPUSCULAR VOLUME 80 fL (79.0-98.0); MONOCYTES # (AUTO) 0.3 K/uL (0.0-1.0); MONOCYTES % (AUTO) 3.9 % (1.7-9.3); NEUTROPHILS # (AUTO) 6.1 K/uL (1.8-7.7); NEUTROPHILS % (AUTO) 71.1 % (40.0-70.0); PLATELET COUNT (AUTO) 236 K/uL (130-430); RED BLOOD CELL COUNT(AUTO) 5.53 MIL/uL (4.2-6.2); RED CELL DISTRIBUTION WIDTH 15.9 % (9.0-15.0); WHITE BLOOD COUNT (AUTO) 8.6 K/uL (4.8-10.8)
[2021-11-08 18:48] LABS: CALCIUM 8.9 mg/dL (8.4-11.0); CREATININE 0.78 mg/dL (0.55-1.30); POTASSIUM 3.8 mmol/L (3.5-5.1)
[2021-11-08 18:54] LABS: ALBUMIN 3.6 g/dL (3.4-4.8); TOTAL BILIRUBIN 0.3 mg/dL (0.0-1.0)
[2021-11-08 19:08] LABS: BILIRUBIN,URINE NEGATIVE (NEGATIVE); BLOOD, URINE 1+ (NEGATIVE); CLARITY/URINE SL CLOUDY (CLEAR); COLOR,URINE YELLOW (YELLOW); GLUCOSE,URINE NEGATIVE (NEGATIVE); KETONES,URINE NEGATIVE (NEGATIVE); LEUKOCYTE ESTERASE ,URINE 2+ (NEGATIVE); NITRITE, URINE NEGATIVE (NEGATIVE); PROTEIN URINE NEGATIVE (NEGATIVE); UROBILINOGEN,URINE 0.2 (0.2-1.0)
[2021-11-08 19:16] LABS: BACTERIA,URINE FEW /HPF (None Seen)
[2021-11-08] MEDS ORDERED: IBUP-1969 PO (19:31)
[2021-11-08] MEDS ORDERED: CIPR500T5 PO (19:31)
[2021-11-08 19:52] VITALS: BP_SYST 132
--- NOTE | 2021-11-08 19:52 | NUR ---
Patient given written and verbal discharge instructions and verbalizes understanding. ER MD discussed with patient the results and treatment provided. Patient in stable condition. ID arm band removed. IV catheter removed intact and dressing applied, no active bleeding. Rx of cipro and ibuprofen given. Patient educated on pain management and to follow up with PMD. Pain Scale 0/10 Opportunity for questions provided and answered. Medication side effect fact sheet provided.
== END 2021-11-08 19:52 | disposition home or self-care (01) ==
LOC: SED 16:39 → MERGE 16:39 → SED 19:52
DX: R51.9 Headache, unspecified (principal); L73.9 Follicular disorder, unspecified; Z79.899 Other long term (current) drug therapy
CPT/HCPCS: 36415; 80053; 81000; 84703; 85025; 87086; 96361; 96374; 96375; 99284; J0780; J1200; J1885; J2270; J7030

== ENCOUNTER 2021-12-15 20:18 | Emergency (ER) | payer OTHER ==
[~2021-12-15 20:18] MED LIST changes: +CIPR500T5 PO; +IBUP-1969 PO
--- NOTE | 2021-12-15 20:24 | NUR ---
Note immanuel in ED - 12/15/21 at 2042 by JEAN PIERRE Placed in room 2 . Placed on monitoring manager, blood pressure machine and pulse oximeter. To gown for exam. Side rails up. Report given to Camila AVERY.
== END 2021-12-16 01:36 | disposition home or self-care (01) ==
LOC: SED 20:18
DX: R06.02 Shortness of breath (principal); Z53.21 Procedure and treatment not carried out due to patient leaving prior to being seen by health care provider

== ENCOUNTER 2022-06-05 02:50 | Outpatient (CLI) | payer OTHER | END 2022-06-05 20:15 | disposition home or self-care (01) | LOC: SRD 02:50 | PROVIDERS: ATTEND Internal Medicine | DX: R06.02 Shortness of breath (principal) | CPT/HCPCS: 71046-TC ==

== ENCOUNTER 2022-08-08 01:50 | Outpatient (CLI) | payer OTHER | END 2022-08-08 17:36 | disposition home or self-care (01) | LOC: SRD 01:50 | PROVIDERS: ATTEND Internal Medicine | DX: M79.671 Pain in right foot (principal) ==

== ENCOUNTER 2022-09-30 08:18 | Outpatient (CLI) | payer OTHER ==
[2022-09-30 09:32] LABS: BASOPHILS % (AUTO) 0.4 % (0.0-2.0); EOSINOPHILS # (AUTO) 0.2 K/uL (0.0-0.4); EOSINOPHILS % (AUTO) 1.9 % (0.0-4.0); HEMATOCRIT 40.6 % (36-48); HEMOGLOBIN 13.4 g/dL (12.0-16.0); LYMPHOCYTES # (AUTO) 2.6 K/uL (1.0-5.5); LYMPHOCYTES % (AUTO) 26.5 % (20.5-51.5); MEAN CORPUSCULAR HEMOGLOBIN 27 pg (27-31); MEAN CORPUSCULAR HGB CONC 33 % (32-36); MEAN CORPUSCULAR VOLUME 81 fL (79.0-98.0); MONOCYTES # (AUTO) 0.5 K/uL (0.0-1.0); MONOCYTES % (AUTO) 5.3 % (1.7-9.3); NEUTROPHILS # (AUTO) 6.4 K/uL (1.8-7.7); NEUTROPHILS % (AUTO) 65.9 % (40.0-70.0); PLATELET COUNT (AUTO) 263 K/uL (130-430); RED CELL DISTRIBUTION WIDTH 16.1 % (9.0-15.0); WHITE BLOOD COUNT (AUTO) 9.8 K/uL (4.8-10.8)
[2022-09-30 09:49] LABS: ALBUMIN 3.4 g/dL (3.4-4.8); CALCIUM 8.3 mg/dL (8.4-11.0); CREATININE 0.78 mg/dL (0.55-1.30); THYROID STIMULATING HORMONE 2.23 uIu/mL (0.34-4.82); TOTAL BILIRUBIN 0.4 mg/dL (0.0-1.0)
[2022-10-01 08:06] LABS: HEMOGLOBIN A1C 5.4 % (4.8-5.6)
== END 2022-09-30 19:53 | disposition home or self-care (01) ==
LOC: SLB 08:18
PROVIDERS: ATTEND Internal Medicine
DX: E66.01 Morbid (severe) obesity due to excess calories (principal); J45.40 Moderate persistent asthma, uncomplicated; K59.04 Chronic idiopathic constipation; R55 Syncope and collapse; E78.5 Hyperlipidemia, unspecified; E03.9 Hypothyroidism, unspecified; E11.65 Type 2 diabetes mellitus with hyperglycemia; E11.21 Type 2 diabetes mellitus with diabetic nephropathy
CPT/HCPCS: 36415; 80053; 80061; 82306; 82607; 83036; 84443; 85025

== ENCOUNTER → 2023-01-03 | Outpatient (CLI) | payer OTHER | END | disposition home or self-care (01) | LOC: SMA 10:06 | PROVIDERS: ATTEND Specialist | DX: Z12.31 Encounter for screening mammogram for malignant neoplasm of breast (principal) | CPT/HCPCS: 77067 ==

== ENCOUNTER 2023-01-11 13:11 | Outpatient (CLI) | payer OTHER ==
[2023-01-11 14:19] LABS: BASOPHILS % (AUTO) 0.4 % (0.0-2.0); EOSINOPHILS # (AUTO) 0.1 K/uL (0.0-0.4); EOSINOPHILS % (AUTO) 1.2 % (0.0-4.0); HEMOGLOBIN 13.6 g/dL (12.0-16.0); LYMPHOCYTES # (AUTO) 2.2 K/uL (1.0-5.5); LYMPHOCYTES % (AUTO) 19.6 % (20.5-51.5); MEAN CORPUSCULAR HEMOGLOBIN 27 pg (27-31); MEAN CORPUSCULAR HGB CONC 33 % (32-36); MEAN CORPUSCULAR VOLUME 80 fL (79.0-98.0); MONOCYTES # (AUTO) 0.5 K/uL (0.0-1.0); MONOCYTES % (AUTO) 4.5 % (1.7-9.3); NEUTROPHILS # (AUTO) 8.2 K/uL (1.8-7.7); NEUTROPHILS % (AUTO) 74.3 % (40.0-70.0); PLATELET COUNT (AUTO) 255 K/uL (130-430); RED BLOOD CELL COUNT(AUTO) 5.11 MIL/uL (4.2-6.2); RED CELL DISTRIBUTION WIDTH 15.7 % (9.0-15.0)
[2023-01-11 14:21] LABS: ERYTHROCYTE SEDIMENTATION RATE 42 MM/HR (0-20)
[2023-01-11 14:42] LABS: ALBUMIN 3.2 g/dL (3.4-4.8); C-REACTIVE PROTEIN QUANT 1.9 mg/dL (0-0.5); CALCIUM 8.6 mg/dL (8.4-11.0); CREATININE 0.92 mg/dL (0.55-1.30); THYROID STIMULATING HORMONE 1.22 uIu/mL (0.34-4.82); TOTAL BILIRUBIN 0.4 mg/dL (0.0-1.0)
== END 2023-01-11 18:38 | disposition home or self-care (01) ==
LOC: SLB 13:11
PROVIDERS: ATTEND Internal Medicine
DX: M84.375A Stress fracture, left foot, initial encounter for fracture (principal); M84.374A Stress fracture, right foot, initial encounter for fracture; E66.9 Obesity, unspecified; E56.9 Vitamin deficiency, unspecified; R73.9 Hyperglycemia, unspecified; E03.9 Hypothyroidism, unspecified; E55.9 Vitamin D deficiency, unspecified; X58.XXXA Exposure to other specified factors, initial encounter; Y93.89 Activity, other specified; Y92.89 Other specified places as the place of occurrence of the external cause; Y99.8 Other external cause status
CPT/HCPCS: 36415; 80053; 80061; 82306; 82607; 83037; 84443; 85025; 85651-TC; 86140

== ENCOUNTER 2023-08-23 03:54 | Outpatient (CLI) | payer OTHER ==
[~2023-08-23 03:54] MED LIST changes: +EPIN0.3P3 IM; +IBUP-1971 PO; +LISI20TA30 PO; +NIRM1TAB PO; +PRED20TA PO
[2023-08-24 08:07] LABS: ESTRADIOL 52.9 pg/mL (.); FOLLICLE STIMULATION HORMONE 5.3 mIU/mL (.); PROGESTERONE <0.1 ng/mL (.); TESTOSTERONE, TOTAL SERUM 26 ng/dL (4-50)
== END 2023-08-23 18:40 | disposition home or self-care (01) ==
LOC: SLB 03:54
PROVIDERS: ATTEND Internal Medicine
DX: N95.9 Unspecified menopausal and perimenopausal disorder (principal)
CPT/HCPCS: 36415; 82670; 83001; 83002; 84144; 84403

== ENCOUNTER 2023-09-15 06:35 | Outpatient (CLI) | payer OTHER | END 2023-09-15 18:28 | disposition home or self-care (01) | LOC: SRD 06:35 | PROVIDERS: ATTEND Internal Medicine | DX: R09.89 Other specified symptoms and signs involving the circulatory and respiratory systems (principal) | CPT/HCPCS: 71046-TC ==

== ENCOUNTER 2024-02-16 07:31 | Outpatient (CLI) | payer OTHER ==
[~2024-02-16 07:31] MED LIST changes: +ALBU4TAB4 PO; +BENZ100C92 PO; +DEC4 PO; +DOXY100C5 PO; +GUAI-723 PO; +LEVO750T64 PO; +NITR-85 PO
[2024-02-16 08:14] LABS: BILIRUBIN,URINE NEGATIVE (NEGATIVE); CLARITY/URINE CLEAR (CLEAR); COLOR,URINE YELLOW (YELLOW); GLUCOSE,URINE NEGATIVE (NEGATIVE); KETONES,URINE NEGATIVE (NEGATIVE); LEUKOCYTE ESTERASE ,URINE NEGATIVE (NEGATIVE); NITRITE, URINE NEGATIVE (NEGATIVE); PROTEIN URINE NEGATIVE (NEGATIVE); UROBILINOGEN,URINE 0.2 (0.2-1.0)
[2024-02-16 08:26] LABS: BLOOD, URINE TRACE (NEGATIVE)
[2024-02-16 08:32] LABS: BASOPHILS % (AUTO) 0.4 % (0.0-2.0); EOSINOPHILS # (AUTO) 0.1 K/uL (0.0-0.4); EOSINOPHILS % (AUTO) 1.3 % (0.0-4.0); HEMATOCRIT 38.5 % (36-48); LYMPHOCYTES # (AUTO) 3.3 K/uL (1.0-5.5); LYMPHOCYTES % (AUTO) 33.1 % (20.5-51.5); MEAN CORPUSCULAR HEMOGLOBIN 27 pg (27-31); MEAN CORPUSCULAR HGB CONC 34 % (32-36); MEAN CORPUSCULAR VOLUME 80 fL (79.0-98.0); MONOCYTES # (AUTO) 0.5 K/uL (0.0-1.0); MONOCYTES % (AUTO) 5.1 % (1.7-9.3); NEUTROPHILS # (AUTO) 5.9 K/uL (1.8-7.7); NEUTROPHILS % (AUTO) 60.1 % (40.0-70.0); PLATELET COUNT (AUTO) 267 K/uL (130-430); RED BLOOD CELL COUNT(AUTO) 4.84 MIL/uL (4.2-6.2); RED CELL DISTRIBUTION WIDTH 15.9 % (9.0-15.0); WHITE BLOOD COUNT (AUTO) 9.8 K/uL (4.8-10.8)
[2024-02-16 08:47] LABS: BACTERIA,URINE RARE /HPF (None Seen); CALCIUM OXALATE CRYSTALS,UR None Seen /HPF (None Seen); CALCIUM PHOSPHATE CRYSTALS,UR None Seen /HPF (None Seen); COARSE GRANULAR CASTS,URINE None Seen /LPF (None Seen); FINE GRANULAR CASTS,URINE None Seen /LPF (None Seen); HYALINE CASTS, URINE None Seen /LPF (None Seen); MUCUS,URINE None Seen /LPF (None Seen); OTHER CASTS, URINE None Seen /LPF (None Seen); OTHER CRYSTALS,URINE None Seen /HPF (None Seen); RBC,URINE 0-3 /HPF (0-3); TRICHOMONAS,URINE None Seen /HPF (None Seen); TRIPLE PHOSPHATE CRYSTAL,UR None Seen /HPF (None Seen); URIC ACID CRYSTALS,URINE None Seen /HPF (None Seen); URINE AMORPHOUS PHOSPHATES None Seen /HPF (None Seen); URINE AMORPHOUS URATE None Seen /HPF (None Seen); WAXY CASTS,URINE None Seen /LPF (None Seen); WBC,URINE NONE SEEN /HPF (0-3); YEAST,URINE None Seen /HPF (None Seen)
[2024-02-16 08:54] LABS: HEMOGLOBIN A1C 5.4 % (<5.7)
[2024-02-16 09:32] LABS: CALCIUM 8.3 mg/dL (8.4-11.0); CREATININE 0.94 mg/dL (0.55-1.30); THYROID STIMULATING HORMONE 2.76 uIu/mL (0.34-4.82); TOTAL BILIRUBIN 0.3 mg/dL (0.0-1.0)
[2024-02-18 13:06] LABS: VIT D,1, 25-DIHYDROXY 23.5 pg/mL (24.8-81.5)
== END 2024-02-16 18:00 | disposition home or self-care (01) ==
LOC: SLB 07:31
PROVIDERS: ATTEND Internal Medicine
DX: I10 Essential (primary) hypertension (principal); E78.5 Hyperlipidemia, unspecified; E55.9 Vitamin D deficiency, unspecified; E56.9 Vitamin deficiency, unspecified
CPT/HCPCS: 36415; 80053; 80061; 81000; 81001; 81015; 82306; 82533; 83037; 84439; 84443; 85025; 87086

== ENCOUNTER 2024-03-24 04:45 | Emergency (ER) | payer OTHER ==
[~2024-03-24] VITALS: Ht 157.5 cm; Wt 127.0 kg
[2024-03-24 05:04] VITALS: BP_SYST 137; PULSE 63; RESP 16; TEMP 96.4; O2SAT 98
[2024-03-24] MEDS: KETOROLAC TROMETHAMINE 60 MG/2 ML VIAL IM ONE (05:04)
[2024-03-24] MEDS ORDERED: NAPR-1172 PO (05:44)
[2024-03-24 05:50] VITALS: BP_SYST 137; PULSE 63; RESP 16; TEMP 96.4; O2SAT 98
== END 2024-03-24 05:51 | disposition home or self-care (01) ==
LOC: SED 04:45
DX: S33.5XXA Sprain of ligaments of lumbar spine, initial encounter (principal); J44.9 Chronic obstructive pulmonary disease, unspecified; Z98.890 Other specified postprocedural states; Z88.5 Allergy status to narcotic agent; Z79.899 Other long term (current) drug therapy; Z79.2 Long term (current) use of antibiotics; W18.39XA Other fall on same level, initial encounter; Y93.89 Activity, other specified; Y92.89 Other specified places as the place of occurrence of the external cause; Y99.8 Other external cause status
CPT/HCPCS: 99283; 96372; J1885

== ENCOUNTER 2024-03-24 06:41 | Outpatient (CLI) | payer OTHER ==
[~2024-03-24 06:41] MED LIST changes: +NAPR-1172 PO
== END 2024-03-24 19:34 | disposition home or self-care (01) ==
LOC: SUS 06:41
PROVIDERS: ATTEND Specialist
DX: N88.8 Other specified noninflammatory disorders of cervix uteri (principal); E28.2 Polycystic ovarian syndrome
CPT/HCPCS: 76856

== ENCOUNTER 2024-03-26 15:12 | Outpatient (CLI) | payer OTHER | END 2024-03-26 18:17 | disposition home or self-care (01) | LOC: SMA 15:12 | PROVIDERS: ATTEND Specialist | DX: Z12.31 Encounter for screening mammogram for malignant neoplasm of breast (principal) | CPT/HCPCS: 77067 ==

== ENCOUNTER 2024-05-29 07:02 | Outpatient (CLI) | payer OTHER | END 2024-05-29 20:07 | disposition home or self-care (01) | LOC: SMI 07:02 | PROVIDERS: ATTEND Student in an Organized Health Care Education/Training Program | DX: M77.52 Other enthesopathy of left foot and ankle (principal); M72.2 Plantar fascial fibromatosis; M79.672 Pain in left foot; M67.02 Short Achilles tendon (acquired), left ankle; R26.2 Difficulty in walking, not elsewhere classified | CPT/HCPCS: 73720 ==

== ENCOUNTER 2024-06-20 08:33 | Outpatient (CLI) | payer OTHER ==
[2024-06-20 10:05] LABS: CALCIUM 8.5 mg/dL (8.4-11.0); CREATININE 1.04 mg/dL (0.55-1.30); TOTAL BILIRUBIN 0.4 mg/dL (0.0-1.0)
[2024-06-20 10:39] LABS: BASOPHILS % (AUTO) 0.3 % (0.0-2.0); EOSINOPHILS # (AUTO) 0.1 K/uL (0.0-0.4); EOSINOPHILS % (AUTO) 0.7 % (0.0-4.0); HEMATOCRIT 41.6 % (36-48); HEMOGLOBIN 13.5 g/dL (12.0-16.0); LYMPHOCYTES # (AUTO) 3.4 K/uL (1.0-5.5); MEAN CORPUSCULAR VOLUME 80 fL (79.0-98.0); MONOCYTES # (AUTO) 0.6 K/uL (0.0-1.0); RED BLOOD CELL COUNT(AUTO) 5.22 MIL/uL (4.2-6.2)
[2024-06-20 10:42] LABS: LYMPHOCYTES % (AUTO) 25.3 % (20.5-51.5); MEAN CORPUSCULAR HEMOGLOBIN 26 pg (27-31); MEAN CORPUSCULAR HGB CONC 33 % (32-36); MONOCYTES % (AUTO) 4.2 % (1.7-9.3); NEUTROPHILS # (AUTO) 9.4 K/uL (1.8-7.7); NEUTROPHILS % (AUTO) 69.5 % (40.0-70.0); PLATELET COUNT (AUTO) 273 K/uL (130-430); RED CELL DISTRIBUTION WIDTH 16.9 % (9.0-15.0); WHITE BLOOD COUNT (AUTO) 13.6 K/uL (4.8-10.8)
[2024-06-20 11:50] LABS: HEMOGLOBIN A1C 5.45 % (<5.7)
[2024-06-25 03:07] LABS: VIT D,1, 25-DIHYDROXY 64.6 pg/mL (24.8-81.5)
== END 2024-06-20 19:55 | disposition home or self-care (01) ==
LOC: SLB 08:33
PROVIDERS: ATTEND Internal Medicine
DX: I10 Essential (primary) hypertension (principal); E55.9 Vitamin D deficiency, unspecified
CPT/HCPCS: 36415; 80053; 82306; 82533; 83037; 85025

== ENCOUNTER 2024-06-24 16:29 | Outpatient (CLI) | payer OTHER ==
[2024-06-24 17:00] LABS: BASOPHILS % (AUTO) 0.4 % (0.0-2.0); EOSINOPHILS # (AUTO) 0.1 K/uL (0.0-0.4); EOSINOPHILS % (AUTO) 0.8 % (0.0-4.0); HEMATOCRIT 42.8 % (36-48); HEMOGLOBIN 13.9 g/dL (12.0-16.0); LYMPHOCYTES # (AUTO) 2.8 K/uL (1.0-5.5); LYMPHOCYTES % (AUTO) 22.1 % (20.5-51.5); MEAN CORPUSCULAR HEMOGLOBIN 26 pg (27-31); MEAN CORPUSCULAR HGB CONC 33 % (32-36); MEAN CORPUSCULAR VOLUME 80 fL (79.0-98.0); MONOCYTES # (AUTO) 0.6 K/uL (0.0-1.0); MONOCYTES % (AUTO) 4.9 % (1.7-9.3); NEUTROPHILS % (AUTO) 71.8 % (40.0-70.0); PLATELET COUNT (AUTO) 258 K/uL (130-430); RED BLOOD CELL COUNT(AUTO) 5.38 MIL/uL (4.2-6.2); RED CELL DISTRIBUTION WIDTH 17.3 % (9.0-15.0); WHITE BLOOD COUNT (AUTO) 12.5 K/uL (4.8-10.8)
[2024-06-24 17:19] LABS: ALBUMIN 3.2 g/dL (3.4-4.8); CALCIUM 9.1 mg/dL (8.4-11.0); CREATININE 0.84 mg/dL (0.55-1.30); POTASSIUM 4.3 mmol/L (3.5-5.1); TOTAL BILIRUBIN 0.4 mg/dL (0.0-1.0); TOTAL PROTEIN, SERUM 7.5 g/dL (6.4-8.3)
[2024-06-26 08:06] LABS: CORTISOL (SERUM) 13.6 ug/dL (6.2-19.4)
[2024-06-26 09:06] LABS: PROGESTERONE 0.1 ng/mL (.)
== END 2024-06-24 18:20 | disposition home or self-care (01) ==
LOC: SLB 16:29
PROVIDERS: ATTEND Internal Medicine
DX: E28.2 Polycystic ovarian syndrome (principal)
CPT/HCPCS: 36415; 80053; 82533; 82670; 84144; 84403; 85025

== ENCOUNTER 2024-08-17 06:11 | Inpatient (IN) | payer OTHER ==
[~2024-08-17] VITALS: Ht 157.5 cm; Wt 126.6 kg
[2024-08-17 06:16] VITALS: BP_SYST 160; PULSE 80; RESP 23; O2SAT 96
[2024-08-17] MEDS: MORPHINE 4 MG INJ. 4 MG/ML VIAL IVP ONE ×2 (06:30→09:00)
[2024-08-17] MEDS: NACL 0.9% 1,000 ML IV ONE (07:07)
[2024-08-17 07:18] LABS: BASOPHILS % (AUTO) 0.3 % (0.0-2.0); EOSINOPHILS # (AUTO) 0.1 K/uL (0.0-0.4); EOSINOPHILS % (AUTO) 0.8 % (0.0-4.0); HEMATOCRIT 40.6 % (36-48); HEMOGLOBIN 13.2 g/dL (12.0-16.0); LYMPHOCYTES # (AUTO) 2.8 K/uL (1.0-5.5); LYMPHOCYTES % (AUTO) 22.3 % (20.5-51.5); MEAN CORPUSCULAR HEMOGLOBIN 26 pg (27-31); MEAN CORPUSCULAR HGB CONC 33 % (32-36); MEAN CORPUSCULAR VOLUME 79 fL (79.0-98.0); MONOCYTES # (AUTO) 0.6 K/uL (0.0-1.0); MONOCYTES % (AUTO) 4.7 % (1.7-9.3); NEUTROPHILS % (AUTO) 71.9 % (40.0-70.0); PLATELET COUNT (AUTO) 302 K/uL (130-430); RED BLOOD CELL COUNT(AUTO) 5.12 MIL/uL (4.2-6.2); RED CELL DISTRIBUTION WIDTH 16.4 % (9.0-15.0); WHITE BLOOD COUNT (AUTO) 12.6 K/uL (4.8-10.8)
[2024-08-17 07:29] LABS: BILIRUBIN,URINE NEGATIVE (NEGATIVE); BLOOD, URINE 3+ (NEGATIVE); CLARITY/URINE SL CLOUDY (CLEAR); COLOR,URINE YELLOW (YELLOW); GLUCOSE,URINE NEGATIVE (NEGATIVE); KETONES,URINE TRACE (NEGATIVE); LEUKOCYTE ESTERASE ,URINE NEGATIVE (NEGATIVE); NITRITE, URINE NEGATIVE (NEGATIVE); PROTEIN URINE TRACE (NEGATIVE); UROBILINOGEN,URINE 0.2 (0.2-1.0)
[2024-08-17 07:33] LABS: ALBUMIN 3.2 g/dL (3.4-4.8); BILIRUBIN,DIRECT 0.1 mg/dL (0.0-0.3); CALCIUM 9.4 mg/dL (8.4-11.0); CREATININE 1.13 mg/dL (0.55-1.30); POTASSIUM 3.7 mmol/L (3.5-5.1); TOTAL BILIRUBIN 0.3 mg/dL (0.0-1.0); TOTAL PROTEIN, SERUM 7.4 g/dL (6.4-8.3)
[2024-08-17 07:53] LABS: BACTERIA,URINE RARE /HPF (None Seen); CALCIUM OXALATE CRYSTALS,UR 0-10 /HPF (None Seen); RBC,URINE 20-50 /HPF (0-3); WBC,URINE 0-3 /HPF (0-3)
[2024-08-17] MEDS: KETOROLAC TROMETHAMINE 15 MG VIAL IVP ONE (08:08)
[2024-08-17] MEDS: CARVEDILOL 6.25 MG TABLET (COREG) PO ONE (09:58)
[2024-08-17] MEDS ORDERED: ONDANSETRON HCL 4 MG/2 ML VIAL IVP PRN (10:00)
[2024-08-17] MEDS: LR 1,000 ML IV SCH (10:41)
[2024-08-17] MEDS: TAMSULOSIN HCL 0.4 MG CAP PO ONE (10:54)
[2024-08-17] MEDS ORDERED: CARV6.2554 PO (12:03)
[2024-08-17] MEDS ORDERED: VITD2000 PO (12:05)
[2024-08-17 13:00] VITALS: O2SAT 97
[2024-08-17] MEDS ORDERED: PROMETHAZINE-DM 6.25 MG-15 MG/5 ML UDC PO PRN (13:45)
[2024-08-17] MEDS ORDERED: IPRATROPIUM/ALBUTEROL SULFATE 3 ML AMPUL.NEB (DUONEB) INH PRN ×2 (13:45→18:30)
[2024-08-17] MEDS: KETOROLAC TROMETHAMINE 15 MG VIAL IVP PRN (13:52)
[2024-08-17 15:32] VITALS: BP_SYST 111; PULSE 89; RESP 18; TEMP 98
[2024-08-17 16:00] VITALS: BP_SYST 111; PULSE 89; RESP 18; TEMP 98.9; O2SAT 96
[2024-08-17 16:40] VITALS: BP_SYST 148; PULSE 58; O2SAT 96
[2024-08-17] MEDS: LORazepam 1 MG TABLET PO ONE (18:16)
[2024-08-17] MEDS ORDERED: INSULIN REGULAR, HUMAN 100 UNITS/ML, 3 ML VIAL (humuLIN R) SUBCUT PRN (18:30)
[2024-08-17] MEDS ORDERED: DEXTROSE 50% JECT 50 ML DISP.SYRIN IVP PRN (18:30)
[2024-08-17 20:00] VITALS: BP_SYST 121; PULSE 78; RESP 18; TEMP 97.6
[2024-08-17] MEDS: NACL 0.9% 1,000 ML IV SCH (20:56)
[2024-08-17] MEDS: cefTRIAXone 1 GM in D5W 50 ML IV SCH (20:57)
[2024-08-17] MEDS: CARVEDILOL 6.25 MG TABLET (COREG) PO SCH (20:58)
[2024-08-17] MEDS: NITROFURANTOIN MONOHYD/M-CRYST 100 MG CAPSULE (MacroBID) PO SCH (21:04)
[2024-08-18] VITALS: BP_SYST 138; PULSE 74; RESP 18; TEMP 97.9; O2SAT 97
[2024-08-18] MEDS: MORPHINE 4 MG INJ. 4 MG/ML VIAL IVP PRN (01:25)
[2024-08-18 06:16] LABS: BASOPHILS % (AUTO) 0.1 % (0.0-2.0); EOSINOPHILS # (AUTO) 0.1 K/uL (0.0-0.4); HEMATOCRIT 40.4 % (36-48); LYMPHOCYTES # (AUTO) 2.3 K/uL (1.0-5.5); LYMPHOCYTES % (AUTO) 17.8 % (20.5-51.5); MEAN CORPUSCULAR HEMOGLOBIN 26 pg (27-31); MEAN CORPUSCULAR HGB CONC 32 % (32-36); MEAN CORPUSCULAR VOLUME 80 fL (79.0-98.0); MONOCYTES # (AUTO) 0.6 K/uL (0.0-1.0); MONOCYTES % (AUTO) 4.8 % (1.7-9.3); NEUTROPHILS % (AUTO) 76.3 % (40.0-70.0); PLATELET COUNT (AUTO) 264 K/uL (130-430); RED BLOOD CELL COUNT(AUTO) 5.06 MIL/uL (4.2-6.2); RED CELL DISTRIBUTION WIDTH 16.7 % (9.0-15.0); WHITE BLOOD COUNT (AUTO) 13.1 K/uL (4.8-10.8)
[2024-08-18 07:10] LABS: ALBUMIN 2.8 g/dL (3.4-4.8); CALCIUM 8.7 mg/dL (8.4-11.0); CREATININE 0.97 mg/dL (0.55-1.30); POTASSIUM 4.3 mmol/L (3.5-5.1); TOTAL BILIRUBIN 0.3 mg/dL (0.0-1.0); TOTAL PROTEIN, SERUM 6.6 g/dL (6.4-8.3)
[2024-08-18 07:27] LABS: HEMOGLOBIN A1C 5.4 % (<5.7)
[2024-08-18 08:00] VITALS: BP_SYST 125; PULSE 66; RESP 16; TEMP 97.1; O2SAT 99
[2024-08-18] MEDS: CHOLECALCIFEROL (VITAMIN D3) 2,000 UNIT TABLET PO SCH (11:52)
[2024-08-18] MEDS: TAMSULOSIN HCL 0.4 MG CAP PO SCH (11:52)
[2024-08-18] MEDS: MULTIVITS,CA,MINERALS/IRON/FA 1 TABLET PO SCH (11:53)
[2024-08-18] MEDS: PANTOPRAZOLE SODIUM 40 MG TAB PO SCH (11:53)
[2024-08-18] MEDS ORDERED: NALOXONE HCL 0.4 MG/ML AMP (NARCAN) IVP PRN ×2 (17:45)
[2024-08-18] MEDS: HYDROcodone/ACETAMIN 10-325 MG TAB PO PRN (18:44)
[2024-08-18] MEDS: LR 1,000 ML IV SCH (18:50)
[2024-08-18 20:00] VITALS: BP_SYST 140; PULSE 66; RESP 18; TEMP 98
[2024-08-19] MEDS: ONDANSETRON HCL 4 MG/2 ML VIAL IVP PRN (00:07)
[2024-08-19 07:33] LABS: BASOPHILS % (AUTO) 0.1 % (0.0-2.0); EOSINOPHILS # (AUTO) 0.1 K/uL (0.0-0.4); EOSINOPHILS % (AUTO) 0.6 % (0.0-4.0); HEMATOCRIT 40.8 % (36-48); HEMOGLOBIN 13.1 g/dL (12.0-16.0); LYMPHOCYTES # (AUTO) 1.8 K/uL (1.0-5.5); LYMPHOCYTES % (AUTO) 11.7 % (20.5-51.5); MEAN CORPUSCULAR HEMOGLOBIN 26 pg (27-31); MEAN CORPUSCULAR HGB CONC 32 % (32-36); MEAN CORPUSCULAR VOLUME 80 fL (79.0-98.0); MONOCYTES # (AUTO) 0.7 K/uL (0.0-1.0); MONOCYTES % (AUTO) 4.9 % (1.7-9.3); NEUTROPHILS # (AUTO) 12.4 K/uL (1.8-7.7); NEUTROPHILS % (AUTO) 82.7 % (40.0-70.0); PLATELET COUNT (AUTO) 253 K/uL (130-430); RED CELL DISTRIBUTION WIDTH 16.9 % (9.0-15.0); WHITE BLOOD COUNT (AUTO) 15.1 K/uL (4.8-10.8)
[2024-08-19 08:12] VITALS: O2SAT 94
[2024-08-19 08:15] VITALS: BP_SYST 117; PULSE 62; RESP 16; TEMP 96.8; O2SAT 94
[2024-08-19 08:30] LABS: CALCIUM 8.9 mg/dL (8.4-11.0); CREATININE 1.17 mg/dL (0.55-1.30); POTASSIUM 4.4 mmol/L (3.5-5.1)
[2024-08-19 12:00] VITALS: BP_SYST 120; PULSE 68; RESP 18; TEMP 97.2; O2SAT 95
[2024-08-19] MEDS: ACETAMINOPHEN 325 MG TABLET PO PRN (14:13)
[2024-08-19 16:00] VITALS: BP_SYST 124; PULSE 70; RESP 18; TEMP 96.8; O2SAT 95
[2024-08-19 20:03] VITALS: BP_SYST 143; PULSE 68; RESP 19; TEMP 97.7; O2SAT 98
[2024-08-20 00:04] VITALS: BP_SYST 116; PULSE 68; RESP 18; TEMP 98.4; O2SAT 95
[2024-08-20 08:28] VITALS: BP_SYST 134; PULSE 64; RESP 18; TEMP 98.1; O2SAT 94
[2024-08-20] MEDS: HYDROcodone/ACETAMIN 10-325 MG TAB PO PRN (08:34)
[2024-08-20 08:54] VITALS: O2SAT 94
[2024-08-20 10:07] VITALS: BP_SYST 134; PULSE 64; O2SAT 94
[2024-08-20 12:49] VITALS: BP_SYST 137; PULSE 65; RESP 20; RESP 22; TEMP 98.6; O2SAT 97
[2024-08-20 16:00] VITALS: BP_SYST 113; PULSE 64; RESP 20; TEMP 98.6; O2SAT 94
== END 2024-08-21 23:00 | disposition home or self-care (01) | DRG 694 ==
LOC: SED 06:11 → SMU 09:51
PROVIDERS: ADMIT Internal Medicine; ATTEND Internal Medicine
DX: N13.2 Hydronephrosis with renal and ureteral calculous obstruction (principal); Z68.43 Body mass index [BMI] 50.0-59.9, adult; N23 Unspecified renal colic; E11.9 Type 2 diabetes mellitus without complications; I10 Essential (primary) hypertension; J44.9 Chronic obstructive pulmonary disease, unspecified; E78.5 Hyperlipidemia, unspecified; E66.01 Morbid (severe) obesity due to excess calories; K57.30 Diverticulosis of large intestine without perforation or abscess without bleeding; E28.2 Polycystic ovarian syndrome; Z88.5 Allergy status to narcotic agent; Z79.51 Long term (current) use of inhaled steroids; Z79.899 Other long term (current) drug therapy
CPT/HCPCS: 36415; 76770; 80048; 80053; 80061; 80076; 81000; 81001; 81015; 83037; 83690; 85025; 99285; J0696; J1815; J1885; J2270; J2405; J7030; J7060; J7120